=== PATIENT | male | born 1985 ===

== ENCOUNTER 2022-10-08 14:11 | Outpatient (REF) | payer OTHER, SELFPAY ==
--- NOTE | ~2022-10-08 | XR_ITS ---
EXAMINATION: XR CHEST CLINICAL INFORMATION: Shortness of breath COMPARISON: None available. TECHNIQUE: 2 views of the chest were obtained. FINDINGS: No significant abnormality is noted involving the heart, lungs, mediastinum, bony thorax or soft tissues. XR/XR chest 2V IMPRESSION: No acute disease.
--- NOTE | 2022-10-08 14:25 | ECG_ITS ---
Test Reason : CHEST PAIN Blood Pressure : / mmHG Vent. Rate : 091 BPM Atrial Rate : 091 BPM P-R Int : 148 ms QRS Dur : 098 ms QT Int : 356 ms P-R-T Axes : 048 -01 037 degrees QTc Int : 437 ms Normal sinus rhythm Normal ECG No previous ECGs available Referred By: Nicole Moya Electronically Signed By:PRINCE LANZA MD
== END 2022-10-08 14:12 | disposition home or self-care (01) ==
LOC: HO.LAB 14:11
PROVIDERS: PCP Nurse Practitioner Family; Visit Provider Nurse Practitioner Family
DX: R07.9 Chest pain, unspecified (principal); R06.02 Shortness of breath
CPT/HCPCS: 71046; 93005

== ENCOUNTER 2022-10-09 08:05 | Outpatient (REF) | payer OTHER, SELFPAY ==
[2022-10-09 08:21] LABS: MANUAL DIFF FLAG NO
[2022-10-09 08:34] LABS: Basophils Absolute Auto 0.1 X10*3/uL (0.0-0.2); Basophils Percent Auto 0.9 % (0-2); Eosinophils Absolute Auto 0.4 X10*3/uL (0.0-0.4); Eosinophils Percent Auto 6.4 % (0-4); Hematocrit 41.1 % (42.0-52.0); Hemoglobin 13.3 g/dl (14.0-18.0); Imm Gran Abs Auto 0.02 X10*3/uL (0.00-0.03); Imm Gran Pct Auto 0.3 % (0.0-0.4); Lymphocytes Percent Auto 31.6 % (20-40); Mean Corpuscular HGB Conc 32.4 g/dl (31.0-36.0); Mean Corpuscular Hemoglobin 28.9 pg (27.0-33.0); Mean Corpuscular Volume 89.3 fL (80.0-98.0); Mean Platelet Volume 9.2 fL (9.4-12.4); Monocytes Absolute Auto 0.7 X10*3/uL (0.1-1.2); Monocytes Percent Auto 10.6 % (2-11); Neutrophils Absolute Auto 3.2 x10*3/uL (2.0-8.3); Neutrophils Percent Auto 50.2 % (45-73); Platelet Count 280 X10*3/uL (160-400); Red Cell Distribution Width 13.1 % (11.0-16.0); White Blood Count 6.4 X10*3/uL (4.8-10.8)
[2022-10-09 09:20] LABS: Erythrocyte Sedimentation Rate 9 MM/HR (0-15)
[2022-10-09 09:21] LABS: Alanine Aminotransferase 28 U/L (0-40); Albumin Level 4.4 g/dL (3.5-5.0); Alkaline Phosphatase 55 U/L (39-117); Anion Gap 11 (12-20); Aspartate Amino Transferase 24 U/L (5-37); Bilirubin Total 0.8 mg/dL (0.0-1.0); Blood Urea Nitrogen 11 mg/dL (9-16); C Reactive Protein 0.17 mg/dL (< or = 0.50); Calcium 9.6 mg/dL (8.4-10.2); Carbon Dioxide 28 mmol/L (22-29); Chloride 105 mmol/L (96-108); Cholesterol 212 mg/dL; Estimated Glomerular Filt Rate > 60; Glucose Random 98 mg/dL (60-115); HDL Cholesterol 34 mg/dL; LDL Cholesterol Calculated 100 mg/dl; Potassium 5.3 mmol/L (3.3-5.1); Sodium 139 mmol/L (135-145); Total Protein 7.3 g/dL (6.5-8.0); Triglycerides 394 mg/dL
[2022-10-09 09:40] LABS: Rheumatoid Factor < 13.0 IU/mL (<15.0)
[2022-10-09 10:45] LABS: Free T4 (Free Thyroxine) 0.92 ng/dL (0.71-1.85)
[2022-10-16 13:19] LABS: Anti Nuclear Antibody Screen NEGATIVE (NEGATIVE)
== END 2022-10-09 08:06 | disposition home or self-care (01) ==
LOC: HO.LAB 08:05
PROVIDERS: Visit Provider Nurse Practitioner Family
DX: Z13.220 Encounter for screening for lipoid disorders (principal); Z13.29 Encounter for screening for other suspected endocrine disorder; Z13.0 Encounter for screening for diseases of the blood and blood-forming organs and certain disorders involving the immune mechanism; M25.50 Pain in unspecified joint; N02.8 Recurrent and persistent hematuria with other morphologic changes
CPT/HCPCS: 36415; 80053; 80061; 84439; 84443; 85025; 85652; 86038; 86140; 86431

== ENCOUNTER 2022-10-15 09:13 | Outpatient (REF) | payer OTHER, SELFPAY ==
[2022-10-15 09:24] LABS: MANUAL DIFF FLAG NO
[2022-10-15 10:04] LABS: Basophils Absolute Auto 0.1 X10*3/uL (0.0-0.2); Basophils Percent Auto 0.9 % (0-2); Eosinophils Absolute Auto 0.4 X10*3/uL (0.0-0.4); Eosinophils Percent Auto 7.5 % (0-4); Hemoglobin 13.8 g/dl (14.0-18.0); Imm Gran Abs Auto 0.02 X10*3/uL (0.00-0.03); Imm Gran Pct Auto 0.4 % (0.0-0.4); Lymphocytes Absolute Auto 1.9 X10*3/uL (1.2-4.9); Lymphocytes Percent Auto 32.6 % (20-40); Mean Corpuscular HGB Conc 32.9 g/dl (31.0-36.0); Mean Corpuscular Hemoglobin 29.7 pg (27.0-33.0); Mean Corpuscular Volume 90.5 fL (80.0-98.0); Mean Platelet Volume 9.8 fL (9.4-12.4); Monocytes Absolute Auto 0.7 X10*3/uL (0.1-1.2); Monocytes Percent Auto 11.7 % (2-11); Neutrophils Absolute Auto 2.7 x10*3/uL (2.0-8.3); Neutrophils Percent Auto 46.9 % (45-73); Platelet Count 299 X10*3/uL (160-400); Red Blood Count 4.64 X10*6/uL (4.60-5.80); White Blood Count 5.7 X10*3/uL (4.8-10.8)
[2022-10-15 10:25] LABS: Alanine Aminotransferase 22 U/L (0-40); Albumin Level 4.7 g/dL (3.5-5.0); Alkaline Phosphatase 60 U/L (39-117); Anion Gap 13 (12-20); Aspartate Amino Transferase 22 U/L (5-37); Bilirubin Total 0.9 mg/dL (0.0-1.0); Blood Urea Nitrogen 11 mg/dL (9-16); Carbon Dioxide 29 mmol/L (22-29); Chloride 104 mmol/L (96-108); Estimated Glomerular Filt Rate > 60; Glucose Random 91 mg/dL (60-115); Potassium 4.5 mmol/L (3.3-5.1); Sodium 141 mmol/L (135-145); Total Protein 7.8 g/dL (6.5-8.0)
== END 2022-10-15 09:14 | disposition home or self-care (01) ==
LOC: HO.LAB 09:13
PROVIDERS: PCP Nurse Practitioner Family; Visit Provider Nurse Practitioner Family
DX: D64.9 Anemia, unspecified (principal); E87.5 Hyperkalemia
CPT/HCPCS: 36415; 80053; 85025

== ENCOUNTER 2022-11-13 09:08 | Outpatient (REF) | payer OTHER, SELFPAY | END 2022-11-13 09:09 | disposition home or self-care (01) | LOC: HO.RESP 09:08 | PROVIDERS: PCP Nurse Practitioner Family; Visit Provider Nurse Practitioner Family | DX: R06.02 Shortness of breath (principal) | CPT/HCPCS: 94060; 94727; 94729 ==

== ENCOUNTER 2022-12-16 08:39 | Outpatient (REF) | payer OTHER, SELFPAY ==
[2022-12-16 10:56] LABS: TSH reflex Free T4 4.15 uIU/mL (0.32-4.0)
[2022-12-16 12:11] LABS: Free T4 (Free Thyroxine) 0.79 ng/dL (0.71-1.85)
== END 2022-12-16 08:40 | disposition home or self-care (01) ==
LOC: HO.LAB 08:39
PROVIDERS: PCP Nurse Practitioner Family; Visit Provider Nurse Practitioner Family
DX: R79.89 Other specified abnormal findings of blood chemistry (principal)
CPT/HCPCS: 36415; 84439; 84443

== ENCOUNTER 2023-01-09 13:54 | Outpatient (AMB) | payer OTHER, SELFPAY ==
[2023-01-09 13:58] VITALS: BP 142/98; PULSE 105; O2SAT 99; BMI 26.6
--- NOTE | 2023-01-09 13:58 | A.OFFPC_ITS ---
Vital Signs 01/09/23 13:58 Height 5 ft 10.5 in Weight 188 lb 2 oz BMI 26.6 BP 142/98 H Blood Pressure Location Lt brachial Position Sitting Pulse 105 H Pulse Source Pulse Oximeter Pulse Oximetry (%) 99 Oxygen Delivery Method Room Air Intake Visit Reasons: Follow up Intake Note: Pt is here for F/U. 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 Pastmedical history significant for seasonal allergiesand allergies to mold and mildew. Patient requesting referral to surveillance systems engineer for allergy testing, referral entered. Patient reports his ongoing chest pressure has resolved. And he overall is feeling much better, patient reports has been going to the gym and exercising. Patient also reports he is taking a multivitamin as well as iron. Requesting that his labs be repeated, repeat labs entered. Patient also requesting referral to a dietitian as he is a vegetarian and wants to make sure he is eating a well-balanced diet and receiving enough nutrients. Referral entered. Blood pressure elevated office today 142/98, recheck by this MAT MAKING MACHINE TENDER 130/88. Patient states he did have coffee today which he does not normally drink. [facility] Medical History Vegetarian diet Family History Mother Rheumatoid arthritis Father No problems noted. Brother No problems noted. Maternal Grandmother Breast cancer Paternal Grandfather Lung cancer Social History Housing: Apartment Alcohol intake: current Alcohol intake frequency: holidays/special occasions only Patient Tobacco Use Status: Former Tobacco user e-Cigarette/Vaping Use: Former Use Second Hand Smoke Exposure: No service: No Current occupational status: employed Current occupational exposures/hazards: No Cognitive needs: No Hearing needs: No Vision needs: Yes (glasses/ contacts) Questionnaire Thrive Questionnaire Date Thrive assessed: 10/08/22 MILEY-7 AMB Questionnaire MILEY-7 Date MILEY - 7 assessed: 10/08/22 Source: Developed by Drs. Shyam Rivero, Richelle Mccurdy, Jatin Hoffman and colleagues, with an educational vinnie from [employer]. Review of Systems Const Denies chills, Denies fatigue, Denies fever(s) and Denies poor appetite Eyes Denies no additional complaints ENT Reports Normal hearing present Card Denies chest pain, Denies syncope, Denies rapid heart rate and Denies dyspnea Resp Denies cough and Denies dyspnea GI Denies change in stool character, Denies constipation, Denies diarrhea, Denies nausea and Denies vomiting Denies dysuria, Denies urinary frequency and Denies urinary urgency Neuro Reports Normal hearing present, Denies confusion and Denies syncope Psych Denies confusion Endo Denies fatigue Physical exam (Primary Care) Vital Signs: Last Vital Signs Pulse 105 H 01/09/23 13:58 BP 142/98 H 01/09/23 13:58 Pulse Ox 99 01/09/23 13:58 Oxygen Delivery Method Room Air 01/09/23 13:58 BMI result Body Mass Index 26.6 Tobacco/Smoking Status: Tobacco use Status Tobacco use date assessed 10/08/22 01/09/23 14:00 Patient Tobacco Use Status Former Tobacco user 01/09/23 14:00 e-Cigarette/Vaping Use Former Use 01/09/23 14:00 Thrive Assessment: Date of Thrive Assessment Date Thrive assessed 10/08/22 01/09/23 14:00 Const General: No confusion Orientation/consciousness: No confusion HENMT Head: Yes normocephalic and Yes atraumatic Eyes Conjunctivae: conjunctivae normal Chest Chest palpation & inspection: normal inspection of the chest Resp Effort & Inspection: normal respiratory effort Auscultation: clear to auscultation bilaterally, no crackles, no rhonchi and no wheezes Cardio Rate: regular rate Rhythm: regular rhythm Heart sounds: S1 normal heart sound present and S2 normal heart sound present GI Inspection: Yes normal to inspection General: Yes no CVA tenderness Back/Spine/Pelvis Back: no CVA tenderness Neuro General: No confusion Cranial nerves: Yes Normal hearing present Extrem General: No edema Assessment and Plan Assessment & Plan (1) Vegetarian diet: Code(s): Z78.9 - Other specified health status Plan: Patient requesting referral to dietitian, referral entered. (2) Environmental allergies: Code(s): Z91.09 - Other allergy status, other than to drugs and biological substances Plan: Referral entered to surveillance systems engineer as requested by patient for allergy testing. (3) Elevated blood pressure reading in office with white coat syndrome, without diagnosis of hypertension: Code(s): R03.0 - Elevated blood-pressure reading, without diagnosis of hypertension Plan: Possibly related to caffeine consumption, which patient reports he does not usually drink. Patient advised follow low-salt diet and exercise. Plan Keep scheduled physical exam in October or follow-up sooner if needed. Orders: Orders Comprehensive Gillespie. Panel Fast Today E78.00 - Pure hypercholesterolemia, unspecified Lipid Panel Today Z13.220 - Encounter for screening for lipoid disorders Complete Blood Count Auto Diff Today Z13.0 - Encounter for screening for diseases of the blood and blood-forming organs and certain disorders involving the immune mechanism Referrals Securities Teller Nutrition Referral D64.9 - Anemia, unspecified, Z78.9 - Other specified health status Allergy & Immunology Referral Z91.09 - Other allergy status, other than to drugs and biological substances Coding Level of Care Code Est Pt Level 3 (90251) Diagnoses Vegetarian diet Z78.9 Environmental allergies Z91.09 Elevated blood pressure reading in office with white coat syndrome, without diagnosis of hypertension R03.0
== END 2023-01-09 14:24 | disposition home or self-care (01) ==
PROVIDERS: PCP Nurse Practitioner Family; Visit Provider Nurse Practitioner Family
DX: Z78.9 Other specified health status (principal); Z91.09 Other allergy status, other than to drugs and biological substances; R03.0 Elevated blood-pressure reading, without diagnosis of hypertension
CPT/HCPCS: 99213

== ENCOUNTER 2023-01-10 09:34 | Outpatient (REF) | payer OTHER, SELFPAY ==
[2023-01-10 09:47] LABS: MANUAL DIFF FLAG NO
[2023-01-10 10:28] LABS: Basophils Absolute Auto 0.1 X10*3/uL (0.0-0.2); Basophils Percent Auto 0.9 % (0-2); Eosinophils Absolute Auto 0.4 X10*3/uL (0.0-0.4); Eosinophils Percent Auto 6.1 % (0-4); Hematocrit 41.3 % (42.0-52.0); Hemoglobin 13.6 g/dl (14.0-18.0); Imm Gran Abs Auto 0.04 X10*3/uL (0.00-0.03); Imm Gran Pct Auto 0.6 % (0.0-0.4); Lymphocytes Absolute Auto 2.4 X10*3/uL (1.2-4.9); Lymphocytes Percent Auto 35.3 % (20-40); Mean Corpuscular HGB Conc 32.9 g/dl (31.0-36.0); Mean Corpuscular Hemoglobin 29.4 pg (27.0-33.0); Mean Corpuscular Volume 89.2 fL (80.0-98.0); Mean Platelet Volume 9.4 fL (9.4-12.4); Monocytes Absolute Auto 0.8 X10*3/uL (0.1-1.2); Monocytes Percent Auto 11.1 % (2-11); Neutrophils Absolute Auto 3.1 x10*3/uL (2.0-8.3); Platelet Count 290 X10*3/uL (160-400); Red Blood Count 4.63 X10*6/uL (4.60-5.80); Red Cell Distribution Width 13.1 % (11.0-16.0); White Blood Count 6.7 X10*3/uL (4.8-10.8)
[2023-01-10 11:32] LABS: Alanine Aminotransferase 20 U/L (0-40); Albumin Level 4.5 g/dL (3.5-5.0); Alkaline Phosphatase 58 U/L (39-117); Anion Gap 14 (12-20); Aspartate Amino Transferase 18 U/L (5-37); Bilirubin Total 0.7 mg/dL (0.0-1.0); Blood Urea Nitrogen 11 mg/dL (9-16); Calcium 9.7 mg/dL (8.4-10.2); Carbon Dioxide 23 mmol/L (22-29); Chloride 106 mmol/L (96-108); Cholesterol 221 mg/dL (<200); Estimated Glomerular Filt Rate > 60; Glucose Fasting 87 mg/dL (60-99); HDL Cholesterol 34 mg/dL (>40); LDL Cholesterol Calculated 128 mg/dL (<100); Sodium 139 mmol/L (135-145); Total Protein 7.5 g/dL (6.5-8.0); Triglycerides 296 mg/dL (<150)
== END 2023-01-10 09:35 | disposition home or self-care (01) ==
LOC: HO.LAB 09:34
PROVIDERS: PCP Nurse Practitioner Family; Visit Provider Nurse Practitioner Family
DX: E78.00 Pure hypercholesterolemia, unspecified (principal); Z13.220 Encounter for screening for lipoid disorders; Z13.0 Encounter for screening for diseases of the blood and blood-forming organs and certain disorders involving the immune mechanism
CPT/HCPCS: 36415; 80053; 80061; 85025

== ENCOUNTER 2023-02-07 14:48 | Outpatient (REF) | payer OTHER, SELFPAY ==
[2023-02-07 15:37] LABS: Appearance Urine Clear; Color Urine Yellow; Glucose Urine UA Negative (Negative); Leukocyte Esterase Urine Negative (Negative); Nitrite Urine Negative (Negative); Specific Gravity - Urine <= 1.005 (1.005-1.025); UMIC TRIGGER UA YES; Urine Blood Trace (Negative); Urine Ketones Negative (Negative); Urine Protein Negative (Neg-Trace)
[2023-02-07 15:48] LABS: Bacteria Urine None Seen (None Seen); Hyaline Casts Urine 0-2 /LPF (0-2); Squamous Epithelial Cell Urine 0-2 /HPF (0-2); WBC Urine 0-5 /HPF (0-5)
[2023-02-07 15:50] LABS: Total Protein Urine Random < 7 mg/dL (<12)
[2023-02-10 18:08] LABS: Anti Glomerular Basement Memb <1.0 AI
[2023-02-10 22:48] LABS: Complement C3 134 mg/dL (82-185)
[2023-02-11 14:38] LABS: IgA 200 mg/dL (47-310); IgG 1438 mg/dL (600-1640); IgM 67 mg/dL (50-300)
[2023-02-12 12:39] LABS: Neutrophil Cyto Ab Screen NEGATIVE (NEGATIVE)
== END 2023-02-07 14:49 | disposition home or self-care (01) ==
LOC: HO.LAB 14:48
PROVIDERS: Visit Provider Internal Medicine Hypertension Specialist
DX: N02.8 Recurrent and persistent hematuria with other morphologic changes (principal)
CPT/HCPCS: 36415; 81001; 82570; 82784; 83520; 84156; 86036; 86160; 86334

== ENCOUNTER 2023-02-25 12:50 | Outpatient (AMB) | payer OTHER, SELFPAY ==
[2023-02-25 13:18] VITALS: BMI 26.7
--- NOTE | 2023-02-25 13:18 | A.OFFVIS_ITS ---
Intake VS Expanded 02/25/23 13:18 03/04/23 13:19 Height 5 ft 10.5 in 5 ft 10 in Weight 188 lb 14.978 oz 189 lb BMI 26.7 27.1 Intake Visit Reasons: Anemia, unspecified/LVM Allergies Seasonal Allergies Allergy (Severe, Verified 01/09/23 14:08) Itchy Eyes HPI Nutrition Presentation Details Pt presents for MNT for anemia Pt reports following a vegetarian diet since 2004 and in the past year he is working on including nutritious vegetarian foods. Pt has questions regarding meal planning and nutrient deficiencies. Pt wants to work on diet modifications following a vegetarian diet and balancing meals. ETOH/SMoking; denies pastries andhte like ++ fruits: 0-1/d dairy: 8-12 oz/d starches > 20 servings vegetables: 3 serving/d protein foods: seeds/cheese , now including legumes and yogurts FRF-Akhltol-Mq.Jeor Equation Height 5 ft 10 in Weight 189 lb Resting Metabolic Rate 1790.64 Calculated Activity Level Mild Activity Calories Needed to Maintain Weight 2462.13 Diagnosis Nutrition problem #1 food nutri know defi As related to (etiology) #1 diagnosis As evidenced by (sign/symptom) #1 knowledge deficit of diet Monitoring/Goals Nutrition problem monitoring level of knowledge/skill Outcome comment Vegetarian protein sources of foods/omega 3 sources of foods Learning/Education Readiness to learn good Stages of change action Educational materials provided Yes (vegetarian meal planning) Most Recent Diabetes Results: Cholesterol 221 mg/dL (<200) H 01/10/23 HDL Cholesterol 34 mg/dL (>40) L 01/10/23 Triglycerides 296 mg/dL (<150) H 01/10/23 Creatinine 0.95 mg/dL (0.5-1.4) 01/10/23 Blood Urea Nitrogen 11 mg/dL (9-16) 01/10/23 Sodium 139 mmol/L (135-145) 01/10/23 Potassium 4.0 mmol/L (3.3-5.1) 01/10/23 Chloride 106 mmol/L (96-108) 01/10/23 Carbon Dioxide 23 mmol/L (22-29) 01/10/23 Calcium 9.7 mg/dL (8.4-10.2) 01/10/23 AST 18 U/L (5-37) 01/10/23 ALT 20 U/L (0-40) 01/10/23 Total Protein 7.5 g/dL (6.5-8.0) 01/10/23 Albumin 4.5 g/dL (3.5-5.0) 01/10/23 [facility] Medical History Vegetarian diet Family History Mother Rheumatoid arthritis Father No problems noted. Brother No problems noted. Maternal Grandmother Breast cancer Paternal Grandfather Lung cancer Social History Housing: Apartment Alcohol intake: current Alcohol intake frequency: holidays/special occasions only Patient Tobacco Use Status: Former Tobacco user e-Cigarette/Vaping Use: Former Use Second Hand Smoke Exposure: No service: No Current occupational status: employed Current occupational exposures/hazards: No Cognitive needs: No Hearing needs: No Vision needs: Yes (glasses/ contacts) Assessment & Plan Assessment & Plan (1) Anemia: Code(s): D64.9 - Anemia, unspecified Plan: wt: 86 kg Est kcal needs as per MSJ: 2500 (40% carb, 30% protein/fat) Est fluid needs as per 25-30 ml/d: 2600 Est prot per day as per 1 g/kg bw: 86 Recommend fiber intake : 8-10 g per day and gradually increase to 25-28 g per day for women and 35-38 g for men or as tolerated Recommend sodium intake per day : less than 2000 mg Educated patient on: ( R = reviewed V = verbalizes understanding N/R = needs review N/A = not applicable * Food sources of carbohydrate, adequate serving sizes and its role in various health conditions: R ,V * Differences between complex carbohydrates a simple carbohydrates, role of fiber in diet: R , V * Vegetarian protein sources of foods and vegetarian food combinations: R * Differences between types of fats and role in diet (mono on saturated fat fatty acids, saturated fatty acids, trans fats): NR * Food sources of sodium in salt and healthy modifications for heart health in kidney health: NR * Vitamins and minerals: R * Healthy plate method concept: R * Physical activity: Benefits a precaution: R V * Abstinence from alcohol: R Patient Instructions: Include vegetarian iron rich source of foods ( legumes/nuts/seeds/ edamame/tofu/eggs) Include vegetarian protein source of foods in each meal following healthy plate method see meal plan ideas Coding Level of Care Code Nutr Indiv Intake (37911) Diagnoses Anemia D64.9 Time Spent (min) 30
[2023-03-04 13:19] VITALS: BMI 27.1
== END 2023-02-25 13:54 | disposition home or self-care (01) ==
PROVIDERS: PCP Nurse Practitioner Family; Visit Provider Dietitian, Registered
DX: D64.9 Anemia, unspecified (principal)

== ENCOUNTER → 2023-02-25 12:50 | Outpatient (BNVA) | payer OTHER, SELFPAY | PROVIDERS: PCP Nurse Practitioner Family; Visit Provider Dietitian, Registered | DX: Z71.3 Dietary counseling and surveillance (principal); D64.9 Anemia, unspecified | CPT/HCPCS: 97802 ==

== ENCOUNTER 2023-03-25 07:06 | Outpatient (REF) | payer OTHER, SELFPAY ==
[2023-03-25 08:25] LABS: TSH reflex Free T4 1.84 uIU/mL (0.32-4.0)
== END 2023-03-25 07:07 | disposition home or self-care (01) ==
LOC: HO.LAB 07:06
PROVIDERS: PCP Nurse Practitioner Family; Visit Provider Nurse Practitioner Family
DX: R79.89 Other specified abnormal findings of blood chemistry (principal)
CPT/HCPCS: 36415; 84443

== ENCOUNTER 2023-05-28 12:51 | Outpatient (AMB) | payer OTHER, SELFPAY ==
[2023-05-28 13:15] VITALS: BMI 27.2
--- NOTE | 2023-05-28 13:15 | A.OFFVIS_ITS ---
Intake VS Expanded 05/28/23 13:15 Height 5 ft 10.5 in Weight 192 lb 3.889 oz BMI 27.2 Intake Visit Reasons: dm/CONFIRMED Allergies Seasonal Allergies Allergy (Severe, Verified 01/09/23 14:08) Itchy Eyes HPI Nutrition Presentation Details Pt presents for MNT follow up anemia. Pt reports working on choosing vegetarian meals, and incorporating vegetables/plant protein foods and reducing on empty calorie foods. Dairy alternative: soy, oat pea milk , 4+ serving/d fruits: 4-5 serving/d non starchy vegetables : 5+ serving/d nuts/seeds: daily 3 + servings pastries: 1-2/d fluids: water, tea, fruit juice diluted with water Physical activity: walks daily Most Recent Diabetes Results: Cholesterol 221 mg/dL (<200) H 01/10/23 HDL Cholesterol 34 mg/dL (>40) L 01/10/23 Triglycerides 296 mg/dL (<150) H 01/10/23 Creatinine 0.95 mg/dL (0.5-1.4) 01/10/23 Blood Urea Nitrogen 11 mg/dL (9-16) 01/10/23 Sodium 139 mmol/L (135-145) 01/10/23 Potassium 4.0 mmol/L (3.3-5.1) 01/10/23 Chloride 106 mmol/L (96-108) 01/10/23 Carbon Dioxide 23 mmol/L (22-29) 01/10/23 Calcium 9.7 mg/dL (8.4-10.2) 01/10/23 AST 18 U/L (5-37) 01/10/23 ALT 20 U/L (0-40) 01/10/23 Total Protein 7.5 g/dL (6.5-8.0) 01/10/23 Albumin 4.5 g/dL (3.5-5.0) 01/10/23 COUNTS INCLUDE 234 BEDS AT [facility] Medical History Vegetarian diet Family History Mother Rheumatoid arthritis Father No problems noted. Brother No problems noted. Maternal Grandmother Breast cancer Paternal Grandfather Lung cancer Social History Housing: Apartment Alcohol intake: current Alcohol intake frequency: holidays/special occasions only Patient Tobacco Use Status: Former Tobacco user e-Cigarette/Vaping Use: Former Use Second Hand Smoke Exposure: No service: No Current occupational status: employed Current occupational exposures/hazards: No Cognitive needs: No Hearing needs: No Vision needs: Yes (glasses/ contacts) Assessment & Plan Assessment & Plan (1) Anemia: Code(s): D64.9 - Anemia, unspecified Plan: wt: 86 kg Est kcal needs as per MSJ: 2500 (40% carb, 30% protein/fat) Est fluid needs as per 25-30 ml/d: 2600 Est prot per day as per 1 g/kg bw: 86 Recommend fiber intake : 8-10 g per day and gradually increase to 25-28 g per day for women and 35-38 g for men or as tolerated Recommend sodium intake per day : less than 2000 mg Educated patient on: ( R = reviewed V = verbalizes understanding N/R = needs review N/A = not applicable * Food sources of carbohydrate, adequate serving sizes and its role in various health conditions: R ,V * Differences between complex carbohydrates a simple carbohydrates, role of fiber in diet: R , V * Vegetarian protein sources of foods and vegetarian food combinations: R * Differences between types of fats and role in diet (mono on saturated fat fatty acids, saturated fatty acids, trans fats): R * Food sources of sodium in salt and healthy modifications for heart health in kidney health: R * Vitamins and minerals: R * Healthy plate method concept: R * Physical activity: Benefits a precaution: R V * Abstinence from alcohol: R Patient Instructions: Continue working on following healthyp late method, incorporating plant protein foods Keep hydrated Choose foods fortified with Calcium, vit D Coding Level of Care Code Nutr Indiv Subseq (37793) Diagnoses Anemia D64.9 Time Spent (min) 20
== END 2023-05-28 13:45 | disposition home or self-care (01) ==
PROVIDERS: PCP Nurse Practitioner Family; Visit Provider Dietitian, Registered
DX: D64.9 Anemia, unspecified (principal)

== ENCOUNTER → 2023-05-28 12:51 | Outpatient (BNVA) | payer OTHER, SELFPAY | PROVIDERS: PCP Nurse Practitioner Family; Visit Provider Dietitian, Registered | DX: D64.9 Anemia, unspecified (principal); Z71.3 Dietary counseling and surveillance | CPT/HCPCS: 97803 ==

== ENCOUNTER 2023-07-19 09:21 | Outpatient (REF) | payer OTHER, SELFPAY ==
[2023-07-19 09:45] LABS: MANUAL DIFF FLAG NO
[2023-07-19 10:18] LABS: Basophils Absolute Auto 0.1 X10*3/uL (0.0-0.2); Basophils Percent Auto 1.1 % (0-2); Eosinophils Absolute Auto 0.5 X10*3/uL (0.0-0.4); Eosinophils Percent Auto 10.1 % (0-4); Hematocrit 41.2 % (42.0-52.0); Hemoglobin 13.7 g/dl (14.0-18.0); Imm Gran Abs Auto 0.02 X10*3/uL (0.00-0.03); Imm Gran Pct Auto 0.4 % (0.0-0.4); Lymphocytes Absolute Auto 1.6 X10*3/uL (1.2-4.9); Lymphocytes Percent Auto 33.7 % (20-40); Mean Corpuscular HGB Conc 33.3 g/dl (31.0-36.0); Mean Corpuscular Hemoglobin 29.8 pg (27.0-33.0); Mean Corpuscular Volume 89.8 fL (80.0-98.0); Mean Platelet Volume 9.6 fL (9.4-12.4); Monocytes Absolute Auto 0.5 X10*3/uL (0.1-1.2); Monocytes Percent Auto 9.9 % (2-11); Neutrophils Absolute Auto 2.1 x10*3/uL (2.0-8.3); Neutrophils Percent Auto 44.8 % (45-73); Platelet Count 267 X10*3/uL (160-400); Red Blood Count 4.59 X10*6/uL (4.60-5.80); Red Cell Distribution Width 13.5 % (11.0-16.0); White Blood Count 4.7 X10*3/uL (4.8-10.8)
[2023-07-19 11:37] LABS: Alanine Aminotransferase 13 U/L (0-40); Albumin Level 4.6 g/dL (3.5-5.0); Alkaline Phosphatase 49 U/L (39-117); Anion Gap 12 (12-20); Aspartate Amino Transferase 16 U/L (5-37); Bilirubin Total 0.8 mg/dL (0.0-1.0); Blood Urea Nitrogen 15 mg/dL (9-16); Calcium 9.5 mg/dL (8.4-10.2); Carbon Dioxide 27 mmol/L (22-29); Chloride 107 mmol/L (96-108); Cholesterol 242 mg/dL (<200); Estimated Glomerular Filt Rate > 60; Glucose Fasting 99 mg/dL (60-99); HDL Cholesterol 50 mg/dL (>40); LDL Cholesterol Calculated 166 mg/dL (<100); Potassium 4.7 mmol/L (3.3-5.1); Sodium 141 mmol/L (135-145); Total Protein 7.7 g/dL (6.5-8.0); Triglycerides 131 mg/dL (<150)
== END 2023-07-19 09:22 | disposition home or self-care (01) ==
LOC: HO.LAB 09:21
PROVIDERS: Visit Provider Nurse Practitioner Family
DX: Z13.0 Encounter for screening for diseases of the blood and blood-forming organs and certain disorders involving the immune mechanism (principal); Z13.29 Encounter for screening for other suspected endocrine disorder; Z13.220 Encounter for screening for lipoid disorders; N02.8 Recurrent and persistent hematuria with other morphologic changes
CPT/HCPCS: 36415; 80053; 80061; 84443; 85025

== ENCOUNTER 2023-08-12 15:36 | Outpatient (AMB) | payer OTHER, SELFPAY ==
--- NOTE | 2023-08-12 15:53 | MHC.PC.OV ---
Vital Signs 08/12/23 15:55 Height 5 ft 10.5 in Weight 189 lb BMI 26.7 BP 100/68 Blood Pressure Location Lt brachial Position Sitting Pulse 74 Pulse Source Pulse Oximeter Pulse Oximetry (%) 98 Oxygen Delivery Method Room Air Intake Visit Reasons: Transfer Of Care Dr. Blanca/Labs Intake Note: Patient is here today for a transfer of care from . 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 Heating Repair Technician: Not Required per policy Accompanied by: Self / Same As Patient Allergies Seasonal Allergies Allergy (Severe, Verified 08/28/23 13:29) Itchy Eyes Medication List - Last Reconciled 08/12/23 by Sourav Jean Baptiste MD cetirizine (Zyrtec) 10 mg PO DAILY PRN loratadine (Claritin) 10 mg PO DAILY Tobacco use date assessed: 08/12/23 Dental Screening Dental Screen Date: 08/12/23 Did you have a dental visit in the last 12 months?: Yes Did you have a dental problem in the last 6 months where you did not have access to dental care?: No Was dental information given to patient?: Patient has dentist HPI Transfer Of Care Dr. Blanca/Labs HPI Details Patient comes in today for his follow up visit - is transferring over from Nicole Segura, who is no longer with the practice Patient states that he feels okay He denies any headaches or dizziness Denies any chest pains, no SOB No nausea/vomiting, no abdominal pain No change in bowel habits noted He had his follow up labs done last month - to discuss his results States that he used to see Dr. Love at his previous renal practice in [place] for his kidney issues and would like to continue following up with him but since he switched his practice over here [place] [facility], will need a new referral for insurance purposes [facility] Medical History Overweight (BMI 25.0-29.9) Pure hypercholesterolemia Vegetarian diet Surgical History No pertinent past surgical history Family History Mother Rheumatoid arthritis Father No problems noted. Brother No problems noted. Maternal Grandmother Breast cancer Paternal Grandfather Lung cancer Social History Housing: Apartment Alcohol intake: current Alcohol intake frequency: holidays/special occasions only Patient Tobacco Use Status: Former Tobacco user e-Cigarette/Vaping Use: Former Use Second Hand Smoke Exposure: No service: No Current occupational status: employed Current occupational exposures/hazards: No Cognitive needs: No Hearing needs: No Vision needs: Yes (glasses/ contacts) Questionnaire PHQ-9 Over the last 2 weeks, how often have you been bothered by any of the following problems? 1. Little interest or pleasure in doing things: not at all 2. Feeling down, depressed, or hopeless: not at all 3. Trouble falling or staying asleep, or sleeping too much: not at all 4. Feeling tired or having little energy: not at all 5. Poor appetite or overeating: not at all 6. Feeling bad about yourself - or that you are a failure or have let yourself or your family down: not at all 7. Trouble concentrating on things, such as reading the newspaper or watching television: not at all 8. Moving or speaking so slowly that other people could have noticed. Or the opposite - being so fidgety or restless that you have been moving around a lot more than usual: not at all 9. Thoughts that you would be better off or of hurting yourself in some way: not at all Total score: 0 Depression Screening Interpretation: Negative Depression Screening Done: Yes 11528 - PHQ-9 Billing: Yes Source: Developed by Drs. Shyam Rivero, Richelle Mccurdy, Jatin Hoffman and colleagues, with an educational vinnie from [employer]. Thrive Questionnaire Date Thrive assessed: 08/12/23 I am a: Patient What is your living situation today?: I have a steady place to live Within the past 12 months, did the food you bought not last and you didn't have the money to get more?: Never true Within the past 12 months, did you worry whether your food would run out before you got money to buy more?: Never true Do you have trouble paying for medicines?: No Do you have trouble getting transportation to medical appointments?: No Do you have trouble paying your heating and electricity bill?: No Do you have trouble taking care of your child, family member or friend?: No Do you have trouble with day-to-day activities such as bathing, preparing meals, shopping, managing finances, etc.?: No Are you currently unemployed and looking for a job?: No Are you interested in more education?: No Currently or been in a relationship where the following occur: no concerns reported THRIVE Score: 0 AUDIT C Alcohol Use Questionnaire (AUDIT-C) 1. How often do you have a drink containing alcohol?: Monthly or less 2. How many drinks containing alcohol do you have on a typical day when you are drinking?: 1 or 2 3. How often do you have six or more drinks on one occasion?: Never Total Score: 1 Score Reviewed/Action Taken: Yes MILEY-7 AMB Questionnaire MILEY-7 Date MILEY - 7 assessed: 08/12/23 Feeling nervous, anxious, or on edge: 0 = Not at all Not being able to stop or control worryin = Not at all Worrying too much about different things: 0 = Not at all Trouble relaxin = Not at all Being so restless that it is hard to sit still: 0 = Not at all Becoming easily annoyed or irritable: 0 = Not at all Feeling afraid as if something awful might happen: 0 = Not at all Total MILEY-7 score (0-4 normal; 5-9 mild; 10-14 moderate; 15-21 severe): 0 Source: Developed by Drs. Shyam Rivero, Richelle Mccurdy, Jatin Hoffman and colleagues, with an educational vinnie from [employer]. Review of Systems Const Denies chills, Denies fatigue, Denies fever(s) and Denies headache(s) ENT Denies dysphagia, Denies dizziness, Denies otalgia, Denies headache(s), Denies neck pain, Denies odynophagia and Denies sore throat Card Denies chest pain, Denies palpitations and Denies dyspnea Resp Denies cough and Denies dyspnea GI Denies abdominal pain, Denies constipation, Denies dysphagia, Denies heartburn, Denies diarrhea, Denies nausea, Denies odynophagia and Denies vomiting Denies dysuria, Denies nocturia and Denies urinary frequency Musc Denies back pain and Denies neck pain Skin/Breast Denies rash Neuro Denies dizziness and Denies headache(s) Endo Denies fatigue and Denies palpitations Physical exam (Primary Care) Vital Signs: Last Vital Signs Pulse 74 08/12/23 15:55 BP 100/68 08/12/23 15:55 Pulse Ox 98 08/12/23 15:55 Oxygen Delivery Method Room Air 08/12/23 15:55 BMI result Body Mass Index 26.7 Tobacco/Smoking Status: Tobacco use Status Tobacco use date assessed 08/12/23 08/12/23 16:01 Patient Tobacco Use Status Former Tobacco user 08/12/23 16:01 e-Cigarette/Vaping Use Former Use 08/12/23 16:01 PHQ-9: PHQ-9 Score PHQ-9: Total score 0 08/12/23 16:31 Depression Screening Interpretation: Negative Thrive Assessment: Date of Thrive Assessment Date Thrive assessed 08/12/23 08/12/23 16:01 Currently or been in a relationship where the following occur: no concerns reported Const General: no acute distress and alert HENMT Ears: TM's normal bilaterally and EAC's normal Throat: Yes posterior oropharynx normal and Yes tonsils normal (no TP congestion) Neck Neck: Yes no lymphadenopathy and Yes supple Thyroid: Thyroid normal Resp Auscultation: clear to auscultation bilaterally, no rales and no wheezes Cardio Rate: regular rate Rhythm: regular rhythm Heart sounds: no murmurs GI Palpation (GI): Soft to palpation and nontender Auscultation: normal bowel sounds General: Yes no CVA tenderness Back/Spine/Pelvis Back: no CVA tenderness Skin Rashes: no rashes Extrem General: Yes no clubbing, cyanosis or edema Results Reviewed Results Reviewed: Laboratory Tests 07/19/23 09:40 WBC 4.7 L Hgb 13.7 L Hct 41.2 L Plt Count 267 Sodium 141 Potassium 4.7 Creatinine 1.03 Estimated GFR > 60 Fasting Glucose 99 Calcium 9.5 AST 16 ALT 13 Triglycerides 131 Cholesterol 242 H LDL Cholesterol, Calc 166 H HDL Cholesterol 50 TSH 1.80 Assessment and Plan Assessment & Plan (1) Pure hypercholesterolemia: Code(s): E78.00 - Pure hypercholesterolemia, unspecified Plan: Results of his labs done last month reviewed and discussed with patient - he is advised that his LDL cholesterol is very high on his recent labs Patient states that he is a vegetarian so he does not really know where his cholesterol is coming from Discussed with patient that this may be hereditary, in which case he will have to be on Rx for his cholesterol at some point, but advised him that one can also have high cholesterol even if he is a vegetarian as we can also absord cholesterol from plant sterols Discussed low cholesterol diet - will have him try to pay more attention to how his food is prepared and cooked for now and we will recheck and reassess his cholesterol at some point later on (2) Eosinophilia: Code(s): D72.10 - Eosinophilia, unspecified Qualifiers: Eosinophilia type: unspecified eosinophilia Qualified Code(s): D72.10 - Eosinophilia, unspecified Plan: Have advised him that his CBC continues to present with persistent eosinophilia, which he's had whenever he had labs done since last year He reports that he has allergies and takes either OTC Loratadine 10 mg or Cetirizine 10 mg QD PRN Will send him for some additional labs for further evaluation Will also refer him to allergy and immunology for further evaluation and management (3) Hematuria: Code(s): R31.9 - Hematuria, unspecified Qualifiers: Hematuria type: benign essential microscopic Qualified Code(s): R31.1 - Benign essential microscopic hematuria Plan: Per request, will refer him to [facility] [place]phrology - patient used to see Dr. Love at his previous renal practice in [place] and would like to continue following up with him (4) Overweight (BMI 25.0-29.9): Code(s): E66.3 - Overweight Plan: Reinforced diet/exercise as tolerated/lose weight Plan Follow up in 3 months Orders: Orders Tryptase 08/12/23 D72.10 - Eosinophilia, unspecified Vitamin B12 and Folate 08/12/23 E53.8 - Deficiency of other specified B group vitamins, D72.10 - Eosinophilia, unspecified Pathologist Review - CBC 08/12/23 D72.10 - Eosinophilia, unspecified, D64.9 - Anemia, unspecified IRON PROFILE 08/12/23 D50.9 - Iron deficiency anemia, unspecified, D72.10 - Eosinophilia, unspecified IgE Antibody (Anti-IgE IgG) 08/13/23 D72.10 - Eosinophilia, unspecified IgE Antibody (Anti-IgE IgG) 08/12/23 D72.10 - Eosinophilia, unspecified UA CC w/rflx Micro + Cult 08/12/23 N02.8 - Recurrent and persistent hematuria with other morphologic changes Referrals Allergy & Immunology Referral Z91.09 - Other allergy status, other than to drugs and biological substances Nephrology Referral N02.8 - Recurrent and persistent hematuria with other morphologic changes Coding Level of Care Code Est Pt Level 4 (04384) Diagnoses Pure hypercholesterolemia E78.00 Eosinophilia, unspecified type D72.10 Eosinophilia type: unspecified eosinophilia 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
[2023-08-12 15:55] VITALS: BP 100/68; PULSE 74; O2SAT 98; BMI 26.7
== END 2023-08-12 16:57 | disposition home or self-care (01) ==
PROVIDERS: PCP Nurse Practitioner Family; Visit Provider Internal Medicine
DX: E78.00 Pure hypercholesterolemia, unspecified (principal); D72.10 Eosinophilia, unspecified; R31.1 Benign essential microscopic hematuria; E66.3 Overweight
CPT/HCPCS: 99214

== ENCOUNTER 2023-08-12 17:02 | Outpatient (REF) | payer OTHER, SELFPAY ==
[2023-08-12 18:01] LABS: Iron 82 mcg/dL (45-160); Percent Iron Saturation 22 % (15-50); Total Iron Binding Capacity 380 mcg/dL (228-428); Unsaturated Iron Binding 298 ug/dL
[2023-08-12 18:17] LABS: Appearance Urine Clear; Color Urine Yellow; Glucose Urine UA Negative (Negative); Leukocyte Esterase Urine Negative (Negative); Nitrite Urine Negative (Negative); UMIC TRIGGER UACC YES; Urine Blood Moderate (2+) (Negative); Urine Ketones Negative (Negative); Urine Protein Negative (Neg-Trace)
[2023-08-12 18:38] LABS: Bacteria Urine None Seen (None Seen); Hyaline Casts Urine 0-2 /LPF (0-2); Squamous Epithelial Cell Urine 0-2 /HPF (0-2); WBC Urine 0-5 /HPF (0-5)
[2023-08-12 18:38] LABS: Folate 12.5 ng/mL (> or = 4.0); Vitamin B12 353 pg/mL (200-900)
== END 2023-08-12 17:03 | disposition home or self-care (01) ==
LOC: HO.LAB 17:02
PROVIDERS: PCP Internal Medicine; Visit Provider Internal Medicine
DX: D50.9 Iron deficiency anemia, unspecified (principal); D72.10 Eosinophilia, unspecified; E53.8 Deficiency of other specified B group vitamins; D64.9 Anemia, unspecified
CPT/HCPCS: 36415; 81001; 82607; 82746; 83520; 83540

== ENCOUNTER 2023-08-28 13:27 | Outpatient (AMB) | payer OTHER, SELFPAY ==
[2023-08-28 13:28] VITALS: BP 116/74; PULSE 74; O2SAT 97; BMI 26.7
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
== END 2023-08-28 13:49 | disposition home or self-care (01) ==
PROVIDERS: PCP Internal Medicine; Visit Provider Internal Medicine Hypertension Specialist
DX: R31.9 Hematuria, unspecified (principal)
CPT/HCPCS: 99214

== ENCOUNTER → 2023-08-28 13:27 | Outpatient (BNVA) | payer OTHER, SELFPAY | PROVIDERS: PCP Internal Medicine; Visit Provider Internal Medicine Hypertension Specialist | DX: R31.9 Hematuria, unspecified (principal); N05.9 Unspecified nephritic syndrome with unspecified morphologic changes | CPT/HCPCS: 99212 ==

== ENCOUNTER 2023-10-27 09:16 | Outpatient (AMB) | payer OTHER, SELFPAY ==
[2023-10-27 09:28] VITALS: BMI 24.8
--- NOTE | 2023-10-27 09:28 | A.OFFVIS_ITS ---
VS Expanded 10/27/23 09:28 Height 5 ft 10.5 in Weight 175 lb 4.28 oz BMI 24.8 Intake Visit Reasons: anemia/LVM Allergies Seasonal Allergies Allergy (Severe, Verified 08/28/23 13:29) Itchy Eyes Nutrition Presentation Details: Pt presents for MNT for anemia/elevated chol Pt follows a vegetarian diet. Recent labs showed improvement in Tg and HDL however elevated LDL and Tot cholesterol Pt reports working on reducing on empty calorie foods Typical meal consits of B: oatmeal with raisin and honey/milk or water L2 fruits D: rice/kimchie fruits: has mixed nuts, vitamin beverages guadalupe/lentils 0-1/m non starchy vegetable: 2/wk dairy: 2-3 /d physical activity: daily life BS Monitoring Most Recent Diabetes Results: Cholesterol 242 mg/dL (<200) H 07/19/23 HDL Cholesterol 50 mg/dL (>40) 07/19/23 Triglycerides 131 mg/dL (<150) 07/19/23 Creatinine 1.03 mg/dL (0.5-1.4) 07/19/23 Blood Urea Nitrogen 15 mg/dL (9-16) 07/19/23 Sodium 141 mmol/L (135-145) 07/19/23 Potassium 4.7 mmol/L (3.3-5.1) 07/19/23 Chloride 107 mmol/L (96-108) 07/19/23 Carbon Dioxide 27 mmol/L (22-29) 07/19/23 Calcium 9.5 mg/dL (8.4-10.2) 07/19/23 AST 16 U/L (5-37) 07/19/23 ALT 13 U/L (0-40) 07/19/23 Total Protein 7.7 g/dL (6.5-8.0) 07/19/23 Albumin 4.6 g/dL (3.5-5.0) 07/19/23 [facility] Medical History Overweight (BMI 25.0-29.9) Pure hypercholesterolemia Vegetarian diet Surgical History No pertinent past surgical history Family History Mother Rheumatoid arthritis Father No problems noted. Brother No problems noted. Maternal Grandmother Breast cancer Paternal Grandfather Lung cancer Social History Housing: Apartment Alcohol intake: current Alcohol intake frequency: holidays/special occasions only Patient Tobacco Use Status: Former Tobacco user e-Cigarette/Vaping Use: Former Use Second Hand Smoke Exposure: No service: No Current occupational status: employed Current occupational exposures/hazards: No Cognitive needs: No Hearing needs: No Vision needs: Yes (glasses/ contacts) Assessment & Plan Assessment & Plan (1) Anemia: Code(s): D64.9 - Anemia, unspecified Category: Medical Plan: wt: 86 kg , 79 kg (10/2023) Est kcal needs as per MSJ: 2500 (40% carb, 30% protein/fat) Est fluid needs as per 25-30 ml/d: 2600 Est prot per day as per 1 g/kg bw: 86 Recommend fiber intake : 8-10 g per day and gradually increase to 25-28 g per day for women and 35-38 g for men or as tolerated Recommend sodium intake per day : less than 2000 mg Educated patient on: ( R = reviewed V = verbalizes understanding N/R = needs review N/A = not applicable * Food sources of carbohydrate, adequate serving sizes and its role in various health conditions: R ,V * Differences between complex carbohydrates a simple carbohydrates, role of fiber in diet: R , V * Vegetarian protein sources of foods and vegetarian food combinations: R * Differences between types of fats and role in diet (mono on saturated fat fatty acids, saturated fatty acids, trans fats): R * Food sources of sodium in salt and healthy modifications for heart health in kidney health: R * Vitamins and minerals: R * Healthy plate method concept: R * Physical activity: Benefits a precaution: R V * Abstinence from alcohol: R Patient Instructions: * continue working on having a variety of foods in your diet (choose lentils/beans/legumes) * include eggs/egg whites/cashew as part of your lunch or peanut butter sand * include non starchy veg as part of your dinner ( greens/carrots/brussel sprouts, try a variety: fresh, frozen,canned oik - Coding Level of Care Code Nutr Indiv Subseq (61929) Diagnoses Anemia D64.9 Time Spent (min) 30
== END 2023-10-27 10:17 | disposition home or self-care (01) ==
PROVIDERS: PCP Nurse Practitioner Family; Visit Provider Dietitian, Registered
DX: D64.9 Anemia, unspecified (principal)

== ENCOUNTER → 2023-10-27 09:16 | Outpatient (BNVA) | payer OTHER, SELFPAY | PROVIDERS: PCP Nurse Practitioner Family; Visit Provider Dietitian, Registered | DX: D64.9 Anemia, unspecified (principal); F50.82 Avoidant/restrictive food intake disorder; E78.00 Pure hypercholesterolemia, unspecified; Z71.3 Dietary counseling and surveillance | CPT/HCPCS: 97803 ==

== ENCOUNTER 2023-11-12 07:55 | Outpatient (REF) | payer OTHER, SELFPAY ==
[2023-11-12 08:06] LABS: MANUAL DIFF FLAG NO
[2023-11-12 08:30] LABS: Basophils Absolute Auto 0.1 X10*3/uL (0.0-0.2); Basophils Percent Auto 1.1 % (0-2); Eosinophils Absolute Auto 0.3 X10*3/uL (0.0-0.4); Eosinophils Percent Auto 6.4 % (0-4); Hematocrit 38.5 % (42.0-52.0); Hemoglobin 13.2 g/dl (14.0-18.0); Imm Gran Abs Auto 0.02 X10*3/uL (0.00-0.03); Imm Gran Pct Auto 0.4 % (0.0-0.4); Lymphocytes Absolute Auto 1.7 X10*3/uL (1.2-4.9); Lymphocytes Percent Auto 31.3 % (20-40); Mean Corpuscular HGB Conc 34.3 g/dl (31.0-36.0); Mean Corpuscular Hemoglobin 30.6 pg (27.0-33.0); Mean Corpuscular Volume 89.3 fL (80.0-98.0); Mean Platelet Volume 9.5 fL (9.4-12.4); Monocytes Absolute Auto 0.7 X10*3/uL (0.1-1.2); Monocytes Percent Auto 12.4 % (2-11); Neutrophils Absolute Auto 2.6 x10*3/uL (2.0-8.3); Neutrophils Percent Auto 48.4 % (45-73); Platelet Count 261 X10*3/uL (160-400); Red Blood Count 4.31 X10*6/uL (4.60-5.80); Red Cell Distribution Width 12.8 % (11.0-16.0); White Blood Count 5.3 X10*3/uL (4.8-10.8)
[2023-11-12 09:22] LABS: Alanine Aminotransferase 12 U/L (0-40); Albumin Level 4.4 g/dL (3.5-5.0); Alkaline Phosphatase 52 U/L (39-117); Anion Gap 11 (12-20); Aspartate Amino Transferase 16 U/L (5-37); Bilirubin Total 0.9 mg/dL (0.0-1.0); Blood Urea Nitrogen 15 mg/dL (9-16); Calcium 9.6 mg/dL (8.4-10.2); Carbon Dioxide 29 mmol/L (22-29); Chloride 104 mmol/L (96-108); Cholesterol 172 mg/dL (<200); Estimated Glomerular Filt Rate > 60; Glucose Fasting 87 mg/dL (60-99); HDL Cholesterol 43 mg/dL (>40); LDL Cholesterol Calculated 114 mg/dL (<100); Sodium 140 mmol/L (135-145); Total Protein 7.3 g/dL (6.5-8.0); Triglycerides 79 mg/dL (<150)
[2023-11-12 09:25] LABS: Vitamin D 25-OH Total 21.4 ng/mL (>30)
[2023-11-12 09:40] LABS: Appearance Urine Clear; Color Urine Yellow; Glucose Urine UA Negative (Negative); Leukocyte Esterase Urine Negative (Negative); Nitrite Urine Negative (Negative); Specific Gravity - Urine 1.025 (1.005-1.025); UMIC TRIGGER UACC YES; Urine Blood Moderate (2+) (Negative); Urine Ketones Negative (Negative); Urine Protein Negative (Neg-Trace)
[2023-11-12 09:51] LABS: Bacteria Urine None Seen (None Seen); Hyaline Casts Urine 0-2 /LPF (0-2); RBC Urine >20 /HPF (0-2); Squamous Epithelial Cell Urine 0-2 /HPF (0-2); WBC Urine 0-5 /HPF (0-5)
[2023-11-21 02:33] LABS: IgE Antibody (Anti-IgE IgG) 13 ng/mL (<168)
== END 2023-11-12 07:56 | disposition home or self-care (01) ==
LOC: HO.LAB 07:55
PROVIDERS: PCP Internal Medicine; Visit Provider Internal Medicine
DX: E78.00 Pure hypercholesterolemia, unspecified (principal); D72.10 Eosinophilia, unspecified; E55.9 Vitamin D deficiency, unspecified; D64.9 Anemia, unspecified
CPT/HCPCS: 36415; 80053; 80061; 81001; 81003; 82306; 83520; 85025

== ENCOUNTER 2023-11-18 15:07 | Outpatient (AMB) | payer OTHER, SELFPAY ==
[2023-11-18 15:19] VITALS: BP 124/86; PULSE 59; O2SAT 98; BMI 24.5
--- NOTE | 2023-11-18 15:19 | MHC.PC.OV ---
Vital Signs 11/18/23 15:19 Height 5 ft 10.5 in Weight 173 lb 0.4 oz BMI 24.5 BP 124/86 Blood Pressure Location Lt brachial Position Sitting Pulse 59 Pulse Source Pulse Oximeter Pulse Oximetry (%) 98 Oxygen Delivery Method Room Air Intake Visit Reasons: follow up Heel Gouger Required: No Allergies Seasonal Allergies Allergy (Severe, Verified 11/19/23 05:02) Itchy Eyes Medication List - Last Reconciled 11/19/23 by Sourav Jean Baptiste MD cetirizine (Zyrtec) 10 mg PO DAILY Tobacco use date assessed: 08/12/23 Dental Screening Dental Screen Date: 08/12/23 HPI follow up HPI Details Patient comes in today for his follow-up visit States that he feels okay He has been meeting with an seeing tnt powder worker here at [facility] for the past few months and has been able to make a lot of productive changes to his diet - states that he needs a new referral to be able to continue seeing the tnt powder worker He has lost some weight as well over the past few months as a result of his dietary changes and states that he feels much better with his weight loss and on his current diet He denies any headaches or dizziness Denies any chest pains, no shortness of breath No nausea / vomiting, no abdominal pain No change in bowel habits noted He had his follow-up labs done last week - to discuss his results [facility] Medical History Vitamin D deficiency Overweight (BMI 25.0-29.9) Pure hypercholesterolemia Vegetarian diet Surgical History No pertinent past surgical history Family History Mother Rheumatoid arthritis Father No problems noted. Brother No problems noted. Maternal Grandmother Breast cancer Paternal Grandfather Lung cancer Social History Housing: Apartment Alcohol intake: current Alcohol intake frequency: holidays/special occasions only Patient Tobacco Use Status: Former Tobacco user e-Cigarette/Vaping Use: Former Use Second Hand Smoke Exposure: No service: No Current occupational status: employed Current occupational exposures/hazards: No Cognitive needs: No Hearing needs: No Vision needs: Yes (glasses/ contacts) Questionnaire Thrive Questionnaire Date Thrive assessed: 08/12/23 AUDIT C Alcohol Use Questionnaire (AUDIT-C) 1. How often do you have a drink containing alcohol?: Monthly or less 2. How many drinks containing alcohol do you have on a typical day when you are drinking?: 1 or 2 3. How often do you have six or more drinks on one occasion?: Never Total Score: 1 Score Reviewed/Action Taken: Yes MILEY-7 AMB Questionnaire MILEY-7 Date MILEY - 7 assessed: 08/12/23 Source: Developed by Drs. Shyam Rivero, Richelle Mccurdy, Jatin Hoffman and colleagues, with an educational vinnie from [employer]. Review of Systems Const Denies chills, Denies fatigue, Denies fever(s) and Denies headache(s) ENT Denies dysphagia, Denies dizziness, Denies otalgia, Denies headache(s), Denies neck pain, Denies odynophagia and Denies sore throat Card Denies chest pain, Denies palpitations and Denies dyspnea Resp Denies cough and Denies dyspnea GI Denies abdominal pain, Denies constipation, Denies dysphagia, Denies heartburn, Denies diarrhea, Denies nausea, Denies odynophagia and Denies vomiting Denies dysuria, Denies nocturia and Denies urinary frequency Musc Denies back pain and Denies neck pain Skin/Breast Denies rash Neuro Denies dizziness and Denies headache(s) Endo Denies fatigue and Denies palpitations Physical exam (Primary Care) Vital Signs: Last Vital Signs Pulse 59 11/18/23 15:19 BP 124/86 11/18/23 15:19 Pulse Ox 98 11/18/23 15:19 Oxygen Delivery Method Room Air 11/18/23 15:19 BMI result Body Mass Index 24.5 Tobacco/Smoking Status: Tobacco use Status Tobacco use date assessed 08/12/23 11/18/23 15:23 Patient Tobacco Use Status Former Tobacco user 11/18/23 15:23 e-Cigarette/Vaping Use Former Use 11/18/23 15:23 Thrive Assessment: Date of Thrive Assessment Date Thrive assessed 08/12/23 11/18/23 15:23 Const General: no acute distress and alert HENMT Throat: Yes posterior oropharynx normal and Yes tonsils normal (no TP congestion) Neck Neck: Yes no lymphadenopathy and Yes supple Thyroid: Thyroid normal Resp Auscultation: clear to auscultation bilaterally, no rales and no wheezes Cardio Rate: regular rate Rhythm: regular rhythm Heart sounds: no murmurs GI Palpation (GI): Soft to palpation and nontender Auscultation: normal bowel sounds General: Yes no CVA tenderness Back/Spine/Pelvis Back: no CVA tenderness Skin Rashes: no rashes Extrem General: Yes no clubbing, cyanosis or edema Results Reviewed Results Reviewed: Laboratory Tests 11/12/23 11/12/23 08:05 08:10 WBC 5.3 Hgb 13.2 L Hct 38.5 L Plt Count 261 Sodium 140 Potassium 4.0 Creatinine 1.02 Estimated GFR > 60 Fasting Glucose 87 Calcium 9.6 AST 16 ALT 12 Triglycerides 79 Cholesterol 172 LDL Cholesterol, Calc 114 H HDL Cholesterol 43 25-OH Vitamin D Total 21.4 L Ur Specific Percy 1.025 Urine Protein Negative Urine Glucose (UA) Negative Urine Blood Moderate (2+) H Urine Nitrite Negative Ur Leukocyte Esterase Negative Assessment and Plan Assessment & Plan (1) Pure hypercholesterolemia: Code(s): E78.00 - Pure hypercholesterolemia, unspecified Plan: Results of his labs done last week reviewed and discussed with patient - advised that his cholesterol levels have improved from previous with the dietary changes that he has made under the guidance of his tnt powder worker He is continuing with his vegetarian diet but has cut out a lot of the processed foods that he used to eat Reinforced low cholesterol diet He would like to continue seeing his tnt powder worker and is requesting for another referral as it has been over a year now since he was first referred and they apparently need a new referral every year - referral done Will recheck his labs and fasting lipids in 6 months for follow-up (2) Eosinophilia: Code(s): D72.10 - Eosinophilia, unspecified Qualifiers: Eosinophilia type: unspecified eosinophilia Qualified Code(s): D72.10 - Eosinophilia, unspecified Plan: His CBC continues to present with persistent eosinophilia although his numbers have decreased from previous He reports that he has allergies and takes either OTC Loratadine 10 mg or Cetirizine 10 mg QD PRN He was referred to and is now seeing allergy and immunology in [place] (Dr. 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 Plan: He has been seen and worked up by Nephrology for this and his workups have all so far been negative Will continue to monitor his urine and renal function regularly Follow-up with nephrology as scheduled (4) Vitamin D deficiency: Code(s): E55.9 - Vitamin D deficiency, unspecified Plan: He is advised that his vitamin-D level was low on his recent labs Will start him on vitamin D3 2000 units QD Plan To return in 6 months for his annual physical examination Orders: Orders Complete Blood Count Auto Diff 6 Months D64.9 - Anemia, unspecified, Z00.00 - Encounter for general adult medical examination without abnormal findings Vitamin D 25-OH Total 6 Months E55.9 - Vitamin D deficiency, unspecified, Z00.00 - Encounter for general adult medical examination without abnormal findings Comprehensive [place]. Panel Fast 6 Months E78.00 - Pure hypercholesterolemia, unspecified, Z00.00 - Encounter for general adult medical examination without abnormal findings Lipid Panel 6 Months E78.00 - Pure hypercholesterolemia, unspecified, Z00.00 - Encounter for general adult medical examination without abnormal findings TSH reflex Free T4 6 Months E78.00 - Pure hypercholesterolemia, unspecified, Z00.00 - Encounter for general adult medical examination without abnormal findings UA CC w/rflx Micro + Cult 6 Months R30.0 - Dysuria, Z00.00 - Encounter for general adult medical examination without abnormal findings Referrals Nutrition/Dietitian Referral D72.10 - Eosinophilia, unspecified, E78.00 - Pure hypercholesterolemia, unspecified, R31.1 - Benign essential microscopic hematuria, Z78.9 - Other specified health status Medications: New cholecalciferol (vitamin D3) 50 mcg PO DAILY 90 days 90 caps 3RF E55.9 - Vitamin D deficiency, unspecified Coding Level of Care Code Est Pt Level 4 (57649) Diagnoses Pure hypercholesterolemia E78.00 Eosinophilia, unspecified type D72.10 Eosinophilia type: unspecified eosinophilia 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 type: benign essential microscopic Vitamin D deficiency E55.9
== END 2023-11-18 16:01 | disposition home or self-care (01) ==
PROVIDERS: PCP Internal Medicine; Visit Provider Internal Medicine
DX: E78.00 Pure hypercholesterolemia, unspecified (principal); D72.10 Eosinophilia, unspecified; R31.1 Benign essential microscopic hematuria; E55.9 Vitamin D deficiency, unspecified
CPT/HCPCS: 99214

== ENCOUNTER 2024-03-16 13:11 | Outpatient (REF) | payer OTHER, SELFPAY ==
[2024-03-17 07:59] LABS: Lyme Abs Screen <0.90 index
== END 2024-03-16 13:12 | disposition home or self-care (01) ==
LOC: HO.LAB 13:11
PROVIDERS: PCP Internal Medicine; Visit Provider Internal Medicine
DX: T14.8XXA Other injury of unspecified body region, initial encounter (principal); W57.XXXA Bitten or stung by nonvenomous insect and other nonvenomous arthropods, initial encounter
CPT/HCPCS: 36415; 86617; 86618

== ENCOUNTER 2024-04-27 08:24 | Outpatient (AMB) | payer OTHER, SELFPAY ==
[2024-04-27 08:34] VITALS: BMI 25.9
--- NOTE | 2024-04-27 08:34 | A.OFFVIS_ITS ---
VS Expanded 04/27/24 08:34 Height 5 ft 10.5 in Weight 182 lb 12.211 oz BMI 25.9 Intake Visit Reasons: Anemia/Confirmed Allergies Seasonal Allergies Allergy (Severe, Verified 11/19/23 05:02) Itchy Eyes Nutrition Presentation Details: Pt presents for MNT f/u for hypercholesterolemia with hx of hematuria, eosinophilia Pt reports getting allergy shot Overall feeling well and more energetic Pt following a vegetarian diet,incorporating fruits /vegetables and grains , seeds Pt is working on making home made meals and relying less on processed foods Pt reading labels and paying attention to amount of saturated fats and vitamin fortification Has a multivitamin fortified supplement couple of times in the week 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 activity - 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 and also participates in gym ETOH: occ BS Monitoring Most Recent Diabetes Results: Cholesterol 172 mg/dL (<200) 11/12/23 HDL Cholesterol 43 mg/dL (>40) 11/12/23 Triglycerides 79 mg/dL (<150) 11/12/23 Creatinine 1.02 mg/dL (0.5-1.4) 11/12/23 Blood Urea Nitrogen 15 mg/dL (9-16) 11/12/23 Sodium 140 mmol/L (135-145) 11/12/23 Potassium 4.0 mmol/L (3.3-5.1) 11/12/23 Chloride 104 mmol/L (96-108) 11/12/23 Carbon Dioxide 29 mmol/L (22-29) 11/12/23 Calcium 9.6 mg/dL (8.4-10.2) 11/12/23 AST 16 U/L (5-37) 11/12/23 ALT 12 U/L (0-40) 11/12/23 Total Protein 7.3 g/dL (6.5-8.0) 11/12/23 Albumin 4.4 g/dL (3.5-5.0) 11/12/23 PFSH Medical History Vitamin D deficiency Overweight (BMI 25.0-29.9) Pure hypercholesterolemia Vegetarian diet Surgical History No pertinent past surgical history Family History Mother Rheumatoid arthritis Father No problems noted. Brother No problems noted. Maternal Grandmother Breast cancer Paternal Grandfather Lung cancer Social History Housing: Apartment Alcohol intake: current Alcohol intake frequency: holidays/special occasions only Patient Tobacco Use Status: Former Tobacco user e-Cigarette/Vaping Use: Former Use Second Hand Smoke Exposure: No service: No Current occupational status: employed Current occupational exposures/hazards: No Cognitive needs: No Hearing needs: No Vision needs: Yes (glasses/ contacts) Assessment & Plan Assessment & Plan (1) Anemia: Code(s): D64.9 - Anemia, unspecified Category: Medical Plan: wt: 86 kg , 79 kg (10/2023), 83 kg (05/04) Est kcal needs as per MSJ: 2500 (40% carb, 30% protein/fat) Est fluid needs as per 25-30 ml/d: 2600 Est prot per day as per 1 g/kg bw: 86 Recommend fiber intake : 8-10 g per day and gradually increase to 25-28 g per day for women and 35-38 g for men or as tolerated Recommend sodium intake per day : less than 2000 mg Educated patient on: ( R = reviewed V = verbalizes understanding N/R = needs review N/A = not applicable * Food sources of carbohydrate, adequate serving sizes and its role in various health conditions: R ,V * Differences between complex carbohydrates a simple carbohydrates, role of fiber in diet: R , V * Vegetarian protein sources of foods and vegetarian food combinations: R * Differences between types of fats and role in diet (mono on saturated fat fatty acids, saturated fatty acids, trans fats): R * Food sources of sodium in salt and healthy modifications for heart health in kidney health: R * Vitamins and minerals: R (vitamin D and importance of fat for absorption , b vitamins and vitamin C combo * Healthy plate method concept: R * Physical activity: Benefits a precaution: R V * Abstinence from alcohol: R Patient Instructions: Add nutritional yeast to your foods 1-2 tbsp per day (has protein and b vitamins) Incorporate foods fortified with Vitamin D (fortified juice, fortified tofu/tempeh, oranges, mushroom, cereals and combine with a monounsaturated fat ( nuts, seeds as example) Keep physically active as able and keep hydrated (water, juices, broth) Coding Level of Care Code Nutr Indiv Subseq (54626) Diagnoses Anemia D64.9 Time Spent (min) 30
== END 2024-04-27 10:01 | disposition home or self-care (01) ==
PROVIDERS: PCP Nurse Practitioner Family; Visit Provider Dietitian, Registered
DX: D64.9 Anemia, unspecified (principal)

== ENCOUNTER → 2024-04-27 08:24 | Outpatient (BNVA) | payer OTHER, SELFPAY | PROVIDERS: PCP Nurse Practitioner Family; Visit Provider Dietitian, Registered | DX: D64.9 Anemia, unspecified (principal) | CPT/HCPCS: 97803 ==

== ENCOUNTER 2024-05-24 07:02 | Outpatient (REF) | payer OTHER, SELFPAY ==
[2024-05-24 07:12] LABS: MANUAL DIFF FLAG NO
[2024-05-24 07:38] LABS: Basophils Absolute Auto 0.1 X10*3/uL (0.0-0.2); Basophils Percent Auto 1.1 % (0-2); Eosinophils Absolute Auto 0.4 X10*3/uL (0.0-0.4); Eosinophils Percent Auto 7.4 % (0-4); Hematocrit 39.8 % (42.0-52.0); Hemoglobin 13.6 g/dl (14.0-18.0); Imm Gran Abs Auto 0.03 X10*3/uL (0.00-0.03); Imm Gran Pct Auto 0.5 % (0.0-0.4); Lymphocytes Absolute Auto 1.9 X10*3/uL (1.2-4.9); Lymphocytes Percent Auto 34.6 % (20-40); Mean Corpuscular HGB Conc 34.2 g/dl (31.0-36.0); Mean Corpuscular Hemoglobin 30.2 pg (27.0-33.0); Mean Corpuscular Volume 88.4 fL (80.0-98.0); Monocytes Absolute Auto 0.7 X10*3/uL (0.1-1.2); Monocytes Percent Auto 11.7 % (2-11); Neutrophils Absolute Auto 2.5 x10*3/uL (2.0-8.3); Neutrophils Percent Auto 44.7 % (45-73); Platelet Count 331 X10*3/uL (160-400); Red Cell Distribution Width 12.6 % (11.0-16.0); White Blood Count 5.6 X10*3/uL (4.8-10.8)
[2024-05-24 08:11] LABS: Alanine Aminotransferase 22 U/L (0-40); Albumin Level 4.5 g/dL (3.5-5.0); Alkaline Phosphatase 52 U/L (39-117); Anion Gap 11 (12-20); Aspartate Amino Transferase 28 U/L (5-37); Bilirubin Total 0.8 mg/dL (0.0-1.0); Blood Urea Nitrogen 16 mg/dL (9-16); Calcium 9.6 mg/dL (8.4-10.2); Carbon Dioxide 30 mmol/L (22-29); Chloride 103 mmol/L (96-108); Cholesterol 153 mg/dL (<200); Estimated Glomerular Filt Rate > 60; Glucose Fasting 92 mg/dL (60-99); HDL Cholesterol 39 mg/dL (>40); LDL Cholesterol Calculated 100 mg/dL (<100); Potassium 4.1 mmol/L (3.3-5.1); Sodium 140 mmol/L (135-145); Total Protein 7.7 g/dL (6.5-8.0); Triglycerides 70 mg/dL (<150)
[2024-05-24 08:28] LABS: TSH reflex Free T4 1.87 uIU/mL (0.32-4.0); Vitamin D 25-OH Total 27.3 ng/mL (>30)
[2024-05-24 08:31] LABS: Appearance Urine Clear; Color Urine Dark Yellow; Glucose Urine UA Negative (Negative); Leukocyte Esterase Urine Negative (Negative); Nitrite Urine Negative (Negative); Specific Gravity - Urine 1.025 (1.005-1.025); UMIC TRIGGER UACC YES; Urine Blood Moderate (2+) (Negative); Urine Ketones Negative (Negative); Urine Protein Negative (Neg-Trace)
[2024-05-24 08:37] LABS: Bacteria Urine None Seen (None Seen); Hyaline Casts Urine 0-2 /LPF (0-2); RBC Urine >20 /HPF (0-2); Squamous Epithelial Cell Urine 0-2 /HPF (0-2); WBC Urine 0-5 /HPF (0-5)
== END 2024-05-24 07:03 | disposition home or self-care (01) ==
LOC: HO.LAB 07:02
PROVIDERS: PCP Internal Medicine; Visit Provider Internal Medicine
DX: Z00.00 Encounter for general adult medical examination without abnormal findings (principal); E78.00 Pure hypercholesterolemia, unspecified; D64.9 Anemia, unspecified; E55.9 Vitamin D deficiency, unspecified; N02.8 Recurrent and persistent hematuria with other morphologic changes; R30.0 Dysuria
CPT/HCPCS: 36415; 80053; 80061; 81001; 82306; 84443; 85025

== ENCOUNTER 2024-06-30 10:17 | Outpatient (REF) | payer OTHER, SELFPAY ==
--- NOTE | ~2024-06-30 | XR_ITS ---
CLINICAL HISTORY: R06.00 - Dyspnea, unspecified 2 view chest x-ray Comparison: 10/08/2022 Findings: Lungs are clear without acute infiltrates. No pneumothorax. Heart size normal. No acute bony abnormalities. Impression: No acute processes This document has been electronically signed by: Slava Sands MD on 06/30/2024 21:32:09
--- OUTSIDE RECORDS SUMMARY | 2024-06-30 12:39 | XMS_ITS | Clinical Summary ---
Author Organization [facility] Facility Address [address] [address] Care Team Providers Care Instructor Bridge Name Role Phone Unavailable Primary Care Provider [...]
== END 2024-06-30 10:18 | disposition home or self-care (01) ==
LOC: HO.XRAY 10:17
PROVIDERS: PCP Internal Medicine; Visit Provider Internal Medicine
DX: Z00.00 Encounter for general adult medical examination without abnormal findings (principal); E78.00 Pure hypercholesterolemia, unspecified; D64.9 Anemia, unspecified; D72.821 Monocytosis (symptomatic); D72.10 Eosinophilia, unspecified; R06.00 Dyspnea, unspecified; E55.9 Vitamin D deficiency, unspecified; R31.1 Benign essential microscopic hematuria; Z91.09 Other allergy status, other than to drugs and biological substances; Z77.090 Contact with and (suspected) exposure to asbestos
CPT/HCPCS: 71046; 96127; 99395

== ENCOUNTER 2024-06-30 10:17 | Outpatient (AMB) | payer OTHER, SELFPAY ==
[2024-06-30 10:48] VITALS: BP 110/82; PULSE 86; O2SAT 99; BMI 25.7
--- NOTE | 2024-06-30 10:48 | A.OFFPC_ITS ---
Vital Signs 06/30/24 10:48 Height 5 ft 10.5 in Weight 181 lb 8 oz BMI 25.7 BP 110/82 Blood Pressure Location Lt brachial Position Sitting Pulse 86 Pulse Source Pulse Oximeter Pulse Oximetry (%) 99 Oxygen Delivery Method Room Air Intake Visit Reasons: annual exam Occup Ther Required: No Accompanied by: Self / Same As Patient Allergies Seasonal Allergies Allergy (Severe, Verified 06/30/24 11:39) Itchy Eyes Medication List - Last Reconciled 06/30/24 by Sourav Jean Baptiste MD cetirizine (Zyrtec) 10 mg PO DAILY cholecalciferol (vitamin D3) 50 mcg PO DAILY 90 days Tobacco use date assessed: 06/30/24 Dental Screening Dental Screen Date: 06/30/24 HPI annual exam HPI Details Patient comes in today for his annual physical examination States that he currently feels okay but relates that he had a bout of bronchitis about 2 months ago, which she states improved with some antibiotics He also tested positive for COVID about 3 weeks ago and states that he's had some cough and congestion for a while before his symptoms gradually cleared up Notes that he is still currently experiencing some lingering shortness of breath at times, especially with exertion, and occasional nonproductive coughing 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 that 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 and he is often in an environment filled with dust and he is concerned about potential asbestos exposure He denies any headaches or dizziness; denies any sore throat Denies any chest pains No nausea/vomiting, no abdominal pain No change in bowel habits noted He denies any acute urinary symptoms He had his follow-up labs done last month - to discuss his results [facility] Medical History Vitamin D deficiency Overweight (BMI 25.0-29.9) Pure hypercholesterolemia Vegetarian diet Surgical History No pertinent past surgical history Family History Mother Rheumatoid arthritis Father No problems noted. Brother No problems noted. Maternal Grandmother Breast cancer Paternal Grandfather Lung cancer Social History Housing: Apartment Alcohol intake: current Alcohol intake frequency: holidays/special occasions only Patient Tobacco Use Status: Former Tobacco user e-Cigarette/Vaping Use: Former Use Second Hand Smoke Exposure: No service: No Current occupational status: employed Current occupational exposures/hazards: No Cognitive needs: No Hearing needs: No Vision needs: Yes (glasses/ contacts) Questionnaire PHQ-9 Over the last 2 weeks, how often have you been bothered by any of the following problems? 1. Little interest or pleasure in doing things: not at all 2. Feeling down, depressed, or hopeless: not at all 3. Trouble falling or staying asleep, or sleeping too much: not at all 4. Feeling tired or having little energy: not at all 5. Poor appetite or overeating: not at all 6. Feeling bad about yourself - or that you are a failure or have let yourself or your family down: not at all 7. Trouble concentrating on things, such as reading the newspaper or watching television: not at all 8. Moving or speaking so slowly that other people could have noticed. Or the opposite - being so fidgety or restless that you have been moving around a lot more than usual: not at all 9. Thoughts that you would be better off or of hurting yourself in some way: not at all Total score: 0 Depression Screening Interpretation: Negative Depression Screening Done: Yes 18248 - PHQ-9 Billing: Yes Source: Developed by Drs. Shyam Rivero, Richelle Mccurdy, Jatin Hoffman and colleagues, with an educational vinnie from [employer]. Thrive Questionnaire Date Thrive assessed: 06/30/24 I am a: Patient What is your living situation today?: I choose not to answer this question Within the past 12 months, did the food you bought not last and you didn't have the money to get more?: I choose not to answer this question Within the past 12 months, did you worry whether your food would run out before you got money to buy more?: I choose not to answer this question Do you have trouble paying for medicines?: I choose not to answer this question Do you have trouble getting transportation to medical appointments?: I choose not to answer this question Do you have trouble paying your heating and electricity bill?: I choose not to answer this question Do you have trouble taking care of your child, family member or friend?: I choose not to answer this question Do you have trouble with day-to-day activities such as bathing, preparing meals, shopping, managing finances, etc.?: I choose not to answer this question Are you currently unemployed and looking for a job?: I choose not to answer this question Are you interested in more education?: I choose not to answer this question Please select the resources that you would like help with: None Currently or been in a relationship where the following occur: I choose not to answer THRIVE Score: 0 AUDIT C Alcohol Use Questionnaire (AUDIT-C) 1. How often do you have a drink containing alcohol?: Monthly or less 2. How many drinks containing alcohol do you have on a typical day when you are drinking?: 1 or 2 3. How often do you have six or more drinks on one occasion?: Never Total Score: 1 Score Reviewed/Action Taken: Yes MILEY-7 AMB Questionnaire MILEY-7 Date MILEY - 7 assessed: 06/30/24 Feeling nervous, anxious, or on edge: 1 = Several days Not being able to stop or control worryin = Not at all Worrying too much about different things: 1 = Several days Trouble relaxin = Several days Being so restless that it is hard to sit still: 1 = Several days Becoming easily annoyed or irritable: 1 = Several days Feeling afraid as if something awful might happen: 1 = Several days Total MILEY-7 score (0-4 normal; 5-9 mild; 10-14 moderate; 15-21 severe): 6 Source: Developed by Drs. Shyam Rivero, Richelle Mccurdy, Jatin Hoffman and colleagues, with an educational vinnie from [employer]. Review of Systems Const Denies chills, Denies fatigue, Denies fever(s), Denies headache(s), Denies malaise and Denies weakness Eyes Denies blurry vision, Denies change in vision, Denies irritation and Denies itchy eyes ENT Denies dysphagia, Denies dizziness, Denies otalgia, Denies headache(s), Denies nasal congestion, Denies neck pain, Denies odynophagia and Denies sore throat Card Denies chest pain, Denies rapid heart rate, Denies irregular heart rhythm, Denies palpitations and Reports dyspnea on exertion (mild, at times) Resp Denies chest congestion, Reports cough (occasional, non-productive), Reports dyspnea on exertion (mild, at times) and Denies wheezing GI Denies abdominal pain, Denies bloating, Denies constipation, Denies dysphagia, Denies heartburn, Denies diarrhea, Denies nausea, Denies odynophagia and Denies vomiting Denies hematuria, Denies difficulty urinating, Denies dysuria, Denies urinary frequency and Denies urinary urgency Musc Denies back pain, Denies arthralgias, Denies joint swelling, Denies muscle weakness and Denies neck pain Skin/Breast Denies change in pigmentation, Denies lesions, Denies rash and Denies unusual bruising Neuro Denies dizziness, Denies headache(s), Denies paresthesias and Denies weakness Endo Denies fatigue and Denies palpitations Aller/Immun Denies itchy eyes and Denies wheezing Physical exam (Primary Care) Vital Signs: Last Vital Signs Pulse 86 06/30/24 10:48 BP 110/82 06/30/24 10:48 Pulse Ox 99 06/30/24 10:48 Oxygen Delivery Method Room Air 06/30/24 10:48 BMI result Body Mass Index 25.7 Tobacco/Smoking Status: Tobacco use Status Tobacco use date assessed 06/30/24 06/30/24 10:49 Patient Tobacco Use Status Former Tobacco user 06/30/24 10:49 e-Cigarette/Vaping Use Former Use 06/30/24 10:49 PHQ-9: PHQ-9 Score PHQ-9: Total score 0 06/30/24 12:48 Depression Screening Interpretation: Negative Thrive Assessment: Date of Thrive Assessment Date Thrive assessed 06/30/24 06/30/24 10:49 Currently or been in a relationship where the following occur: I choose not to answer Const General: no acute distress, alert and awake Orientation/consciousness: patient oriented x3 HENMT Head: Yes normocephalic and Yes atraumatic Ears: external ears normal, TM's normal bilaterally and EAC's normal General nose exam: No nasal discharge present Face and sinus: Yes normal facial exam and Yes sinuses nontender Teeth and gingiva: dentition normal Throat: Yes posterior oropharynx normal and Yes tonsils normal (no TP congestion) Eyes Eyelids: Yes eyelids normal Conjunctivae: conjunctivae normal Pupils: Equal, round and reactive pupils present EOM: EOMs intact bilaterally Neck Neck: Yes no lymphadenopathy and Yes supple Thyroid: Thyroid normal Resp Auscultation: clear to auscultation bilaterally, no rales and no wheezes Cardio Rate: regular rate Rhythm: regular rhythm Heart sounds: no murmurs GI Palpation (GI): Soft to palpation, nontender and No hepatosplenomegaly present Auscultation: normal bowel sounds General: Yes no CVA tenderness Back/Spine/Pelvis Back: no CVA tenderness Thoracic/Lumbar Spine: thoracic and lumbar spine normal to inspection Skin Lesions: no lesions Rashes: no rashes Neuro General: patient oriented x3, moves all extremities, no focal motor deficits and CN's II-XI intact bilaterally Cranial nerves: Yes Equal, round and reactive pupils present Cognition (Neuro): normal cognition Gait exam (Neuro): Normal gait present Extrem General: Yes no clubbing, cyanosis or edema Results Reviewed Results Reviewed: Laboratory Tests 05/24/24 05/24/24 07:05 07:06 WBC 5.6 Hgb 13.6 L Hct 39.8 L Plt Count 331 D Sodium 140 Potassium 4.1 Creatinine 0.92 Estimated GFR > 60 Fasting Glucose 92 Calcium 9.6 AST 28 ALT 22 Triglycerides 70 Cholesterol 153 LDL Cholesterol, Calc 100 H HDL Cholesterol 39 L 25-OH Vitamin D Total 27.3 L TSH 1.87 Ur Specific [place] 1.025 Urine Protein Negative Urine Glucose (UA) Negative Urine Blood Moderate (2+) H Urine Nitrite Negative Ur Leukocyte Esterase Negative Coding Level of Care Code Est Pt Prev Care 18-39y(19248) Diagnoses Annual physical exam Z00.00 Pure hypercholesterolemia E78.00 Anemia, unspecified type D64.9 Anemia type: unspecified type Monocytosis D72.821 Eosinophilia, unspecified type D72.10 Eosinophilia type: unspecified eosinophilia Dyspnea, unspecified type R06.00 Dyspnea type: unspecified Vitamin D deficiency E55.9 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 type: benign essential microscopic Environmental allergies Z91.09 Additional Codes PHQ-9 - 99364 - PHQ-9 Billing: Yes ([id number]) Assessment & Plan Assessment & Plan (1) Annual physical exam: Code(s): Z00.00 - Encounter for general adult medical examination without abnormal findings Category: Medical Plan: Results of his labs done last month reviewed and discussed with patient (2) Pure hypercholesterolemia: Code(s): E78.00 - Pure hypercholesterolemia, unspecified Category: Medical Plan: Patient's cholesterol levels have improved significantly over the past year - states that he has been on a vegetarian diet for a while now and is glad that this is reflecting in his cholesterol numbers Reinforced low-cholesterol diet Will recheck his labs and fasting lipids in 6 months for follow-up (3) Anemia: Code(s): D64.9 - Anemia, unspecified Category: Medical Qualifiers: Anemia type: unspecified type Qualified Code(s): D64.9 - Anemia, unspecified Plan: Patient has been presenting with mild anemia consistently on his labs done over the past couple of years His iron levels were normal when checked last year Peripheral smear also came back normal He is being referred to hematology for further evaluation and management of his monocytosis and he will likely have this evaluated as well Will continue to monitor his CBC regularly (4) Monocytosis: Code(s): D72.821 - Monocytosis (symptomatic) Category: Medical Plan: Patient has also been presenting with mild monocytosis on his CBC done over the past couple of years A peripheral smear done last year (2023) came back normal Will refer him to Hematology for further evaluation and management (5) Eosinophilia: Code(s): D72.10 - Eosinophilia, unspecified Category: Medical Qualifiers: Eosinophilia type: unspecified eosinophilia Qualified Code(s): D72.10 - Eosinophilia, unspecified Plan: His CBC continues to present with persistent eosinophilia although his numbers have decreased from previous He reports that he has allergies and takes either OTC Loratadine 10 mg or Cetirizine 10 mg QD PRN He was referred to and is now seeing allergy and immunology in [place] (Dr. 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 He also reports experiencing on and off shortness of breath and occasional cough Will send him for chest x-rays for further evaluation Will also refer him for PFTs for further evaluation of his dyspnea (7) Vitamin D deficiency: Code(s): E55.9 - Vitamin D deficiency, unspecified Category: Medical Plan: Continue Vitamin D3 2000 units QD (8) Hematuria: Code(s): R31.9 - Hematuria, unspecified Category: Medical Qualifiers: Hematuria type: benign essential microscopic Qualified Code(s): R31.1 - Benign essential microscopic hematuria Plan: He has been seen and worked up by Nephrology for this and his workups have all so far been negative Will continue to monitor his urine and renal function regularly Follow-up with nephrology as scheduled (9) Environmental allergies: Code(s): Z91.09 - Other allergy status, other than to drugs and biological substances Category: Medical Plan Continue OTC Loratadine 10 mg or Cetirizine 10 mg QD PRN He was referred to and is now seeing allergy and immunology in [place] (Dr. Keys) and getting allergy injections regularly Orders: Orders XR chest 2V 06/30/24 R06.00 - Dyspnea, unspecified, Z77.090 - Contact with and (suspected) exposure to asbestos UA CC w/rflx Micro + Cult 6 Months R30.0 - Dysuria Urine Cytology 6 Months R31.1 - Benign essential microscopic hematuria PFT pulmonary function test 06/30/24 R06.00 - Dyspnea, unspecified, Z77.090 - Contact with and (suspected) exposure to asbestos Complete Blood Count Auto Diff 6 Months D64.9 - Anemia, unspecified Lipid Panel 6 Months E78.00 - Pure hypercholesterolemia, unspecified Referrals Hematology & Oncology Referral D64.9 - Anemia, unspecified, D72.10 - Eosinophilia, unspecified, D72.821 - Monocytosis (symptomatic)
--- OUTSIDE RECORDS SUMMARY | 2024-06-30 10:52 | XMS_ITS | Clinical Summary ---
Author Organization [facility] Facility Address [address] [address] Care Team Providers Care Race Starter Name Role Phone Unavailable Primary Care Provider Unavailabl e Allergies No known active allergies Medications LORATADINE PO Take by mouth 2 Active cetirizine (ZyrTEC) 10 MG tablet Take 10 mg by mouth 2 Active amphetamine-dex troamphetamine (Adderall) 5 MG tablet Take 5 mg by mouth 2 Active Calcium-Magnesi um 250-125 MG tablet Take by mouth Active b complex vitamins capsule Take 1 capsule by mouth 1 (one) time each day Active ferrous sulfate 325 (65 Fe) MG tablet Take 325 mg by mouth 1 (one) time each day with breakfast Active Family History Medical History Relation Comments Hypertension Father Diabetes Mother Hypertension Mother Cancer Mother's Brother Cancer Paternal Grandmother Relation Status Comments Father Alive Mother Alive Mother's Brother Paternal Grandmother Social History Tobacco Use Types Packs/Day Years Used Date Smoking Tobacco: Never Tobacco Cessation:Counseling Given: Not Answered Alcohol Use Standard Drinks/Week Comments Never 0 (1 standard drink = 0.6 oz pur e alcohol) Sex and Gender Information Value Date Recorded Sex Assigned at Not on file Legal Sex Male 9:37 AM EDT Gender Identity Not on file Sexual Orientation Not on file Last Filed Vital Signs Vital Sign Reading Time Taken Comments Blood Pressure 140/100 02/03/2023 2:57 PM EDT Pulse 88 02/03/2023 2:57 PM EDT Temperature - - Respiratory Rate - - Oxygen Saturation 99% 02/03/2023 2:57 PM EDT Inhaled Oxygen Concentration - - Weight 91.1 kg (200 lb 12.8 oz) 02/03/2023 2:57 PM EDT Height - - Body Mass Index - - Plan of Treatment Health Maintenance Due Date Last Done Comments Hepatitis B Vaccine (1 of 3 - 19+ 3-dose series) 2004 Influenza Vaccine (#1) 2024 Pneumococcal Vaccine: Pediat rics (0 to 5 Years) and At-Risk Patients (6 to 64 Years) Aged Out No longer eligi ble based on patient's age to complete this topic Insurance MEDICAID
== END 2024-06-30 12:00 | disposition home or self-care (01) ==
PROVIDERS: PCP Internal Medicine; Visit Provider Internal Medicine
DX: Z00.00 Encounter for general adult medical examination without abnormal findings (principal); E78.00 Pure hypercholesterolemia, unspecified; D64.9 Anemia, unspecified; D72.821 Monocytosis (symptomatic); D72.10 Eosinophilia, unspecified; R06.00 Dyspnea, unspecified; E55.9 Vitamin D deficiency, unspecified; R31.1 Benign essential microscopic hematuria; Z91.09 Other allergy status, other than to drugs and biological substances

== ENCOUNTER → 2024-06-30 12:12 | Outpatient (BNV) | payer OTHER, SELFPAY | PROVIDERS: PCP Internal Medicine; Visit Provider Radiology Diagnostic Radiology | DX: R06.00 Dyspnea, unspecified (principal) | CPT/HCPCS: 71046 ==

== ENCOUNTER → 2024-07-13 14:20 | Outpatient (BNV) | payer OTHER, SELFPAY | PROVIDERS: PCP Internal Medicine; Referring Provider Internal Medicine; Visit Provider Internal Medicine Medical Oncology | DX: D64.9 Anemia, unspecified (principal) | CPT/HCPCS: 99204 ==

== ENCOUNTER 2024-08-03 07:38 | Outpatient (REF) | payer OTHER, SELFPAY ==
--- OUTSIDE RECORDS SUMMARY | 2024-08-03 07:41 | XMS_ITS | Clinical Summary ---
Author Organization [facility] Facility Address [address] [address] Care Team Providers Care Chief Petroleum Engineer Name Role Phone Unavailable Primary Care Provider [...]
--- NOTE | 2024-08-03 07:51 | PFT_ITS ---
Indication: Dyspnea Spirometry [FEV1 to FVC 82%; FEV1 5.29 L; FVC 6.33 L. no significant response to bronchodilators noted] Lung Volumes [Total lung capacity 109% predicted residual volume 89% predicted] Diffusion Capacity [DLCO 103% predicted] Flow Volume Loops [Normal lung mechanics] Comparisons [none] Interpretation [No obstructive nor restrictive ventilatory defects identified. No significant response to bronchodilators noted. Normal lung volumes and normal diffusing capacity. The pulmonary function studies are consistent with normal lung mechanics and no clear explanation for the patient's symptoms. If asthma is in differential a methacholine challenge may be helpful to assess hyperreactive airways.] MTDD
[2024-08-03 08:30] VITALS: PULSE 84; O2SAT 100
== END 2024-08-03 07:39 | disposition home or self-care (01) ==
LOC: HO.RESP 07:38
PROVIDERS: PCP Internal Medicine; Visit Provider Internal Medicine
DX: R06.00 Dyspnea, unspecified (principal); Z77.090 Contact with and (suspected) exposure to asbestos
CPT/HCPCS: 94010; 94640; 94727; 94729

== ENCOUNTER → 2024-08-03 07:51 | Outpatient (BNV) | payer OTHER, SELFPAY | PROVIDERS: PCP Internal Medicine; Visit Provider Hospitalist | DX: R06.09 Other forms of dyspnea (principal); Z77.090 Contact with and (suspected) exposure to asbestos | CPT/HCPCS: 94060; 94727; 94729 ==

== ENCOUNTER 2024-08-19 08:45 | Outpatient (REF) | payer OTHER, SELFPAY ==
--- OUTSIDE RECORDS SUMMARY | 2024-08-19 09:08 | XMS_ITS | Clinical Summary ---
Author Organization [facility] Facility Address [address] [address] Care Team Providers Care Assembler [employer] Name Role Phone Unavailable Primary Care Provider [...] - 19+ 3-dose series) 2004 Influenza Vaccine (Season Ended) 2025 Pneumococcal Vaccine: Peds ( 0 to 5 Years) and At-Risk Patients (6 to 49 Years) Aged Out No longer eligible b ased on patient's age to complete this topic Insurance Medicaid
[2024-08-19 09:14] LABS: Hematocrit 39.5 % (42.0-52.0); Hemoglobin 13.9 g/dl (14.0-18.0); Mean Corpuscular HGB Conc 35.2 g/dl (31.0-36.0); Mean Corpuscular Hemoglobin 30.8 pg (27.0-33.0); Mean Corpuscular Volume 87.4 fL (80.0-98.0); Mean Platelet Volume 9.4 fL (9.4-12.4); Platelet Count 284 X10*3/uL (160-400); Red Blood Count 4.52 X10*6/uL (4.60-5.80); Red Cell Distribution Width 12.7 % (11.0-16.0); White Blood Count 5.5 X10*3/uL (4.8-10.8)
[2024-08-19 09:32] LABS: Appearance Urine Clear; Color Urine Yellow; Glucose Urine UA Negative (Negative); Leukocyte Esterase Urine Negative (Negative); Nitrite Urine Negative (Negative); Specific Gravity - Urine 1.025 (1.005-1.025); UMIC TRIGGER UA YES; Urine Blood Moderate (2+) (Negative); Urine Ketones Negative (Negative); Urine Protein Negative (Neg-Trace)
[2024-08-19 09:38] LABS: Bacteria Urine None Seen (None Seen); Hyaline Casts Urine 0-2 /LPF (0-2); Squamous Epithelial Cell Urine 0-2 /HPF (0-2); WBC Urine 0-5 /HPF (0-5)
[2024-08-19 09:44] LABS: Anion Gap 11 (12-20); Blood Urea Nitrogen 14 mg/dL (9-16); Calcium 9.3 mg/dL (8.4-10.2); Carbon Dioxide 27 mmol/L (22-29); Chloride 104 mmol/L (96-108); Estimated Glomerular Filt Rate > 60; Glucose Random 89 mg/dL (60-115); Sodium 137 mmol/L (135-145)
[2024-08-19 10:52] LABS: Creatinine Urine 185.63 mg/dL; Total Protein Urine Random < 7 mg/dL (<12)
== END 2024-08-19 08:46 | disposition home or self-care (01) ==
LOC: HO.LAB 08:45
PROVIDERS: PCP Internal Medicine; Visit Provider Internal Medicine Hypertension Specialist
DX: R31.9 Hematuria, unspecified (principal); N05.9 Unspecified nephritic syndrome with unspecified morphologic changes
CPT/HCPCS: 36415; 80048; 81001; 82570; 84156; 85027

== ENCOUNTER 2024-08-26 13:07 | Outpatient (AMB) | payer OTHER, SELFPAY ==
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
[2024-08-26 13:17] VITALS: BP 115/62; PULSE 74; O2SAT 98; BMI 25.0
--- OUTSIDE RECORDS SUMMARY | 2024-08-26 16:03 | XMS_ITS | Clinical Summary ---
Author Organization [facility] Facility Address [address] [address] Care Team Providers Care Shell Coremaker Name Role Phone Unavailable Primary Care Provider [...]
== END 2024-08-26 13:30 | disposition home or self-care (01) ==
LOC: HO.HKA 13:07
PROVIDERS: PCP Internal Medicine; Visit Provider Internal Medicine Hypertension Specialist
DX: R31.1 Benign essential microscopic hematuria (principal)
CPT/HCPCS: 99214

== ENCOUNTER → 2024-08-26 13:07 | Outpatient (BNVA) | payer OTHER, SELFPAY | PROVIDERS: PCP Internal Medicine; Visit Provider Internal Medicine Hypertension Specialist | DX: R31.1 Benign essential microscopic hematuria (principal) | CPT/HCPCS: 99212 ==

== ENCOUNTER 2024-12-28 07:24 | Outpatient (REF) | payer OTHER, SELFPAY ==
--- OUTSIDE RECORDS SUMMARY | 2024-12-28 07:27 | XMS_ITS | Clinical Summary ---
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 8 g 4 Active inhaler spacing device (AEROCHAMBER,BR EATHERITE) Spcr Inhale 1 each into the lungs every 4 (four) hours as needed. 1 each 4 Active Active Problems No known active problems Social History Tobacco Use Types Packs/Day Years Used Date Smoking Tobacco: Former Smokeless Tobacco: Never Tobacco Cessation:Counseling Given: Not Answered Education Answer Date Recorded Are you interested in more education? Not on reed e 09/06/2022 Are you concerned about learning? Not on file 09/06/2022 No 09/06/2022 No 09/06/2022 Digital Access Answer Date Recorded No 10/05/2022 No 10/05/2022 Reliable internet access at home? Not on file 10/05/2022 Device with a working camera? Not on file Sex and Gender Information Value Date Recorded Sex Assigned at Male 05/19/2017 9:38 AM EST Legal Sex Male 4:24 AM EST Gender Identity Male 05/19/2017 9:38 AM EST Sexual Orientation Straight 05/19/2017 9: 38 AM EST Last Filed Vital Signs Vital Sign Reading Time Taken Comments Blood Pressure 141/78 05/06/2024 12:26 PM EST Pulse 70 05/06/2024 12:26 PM EST Temperature 36.6 C (97.8 F) 05/06/2024 12:26 PM EST Respiratory Rate 20 05/06/2024 12:26 PM EST Oxygen Saturation 100% 05/06/2024 12:26 PM EST Inhaled Oxygen Concentration - - Weight 81.6 kg (180 lb) 05/06/2024 12:26 PM EST Height 180.3 cm (5' 11 ) 05/06/2024 12:26 PM EST Body Mass Index 25.1 05/06/2024 12:26 PM EST Plan of Treatment Health Maintenance Due Date Last Done Comments LIPID PANEL 1985 DEPRESSION SCREENING 1997 SMOKING Hx and SMOKELESS TOBACCO SCREENING 1998 HEPATITIS C SCREENING 2003 HIV ONE-TIME SCREENING (18-65 YEARS) 2003 SCREENING FOR DIABETES 2020 COVID-19 VACCINE ( season) 2024 02/19/2022, 06/14/2021, 09/07/2020, Additional history exists Adult Td,Tdap Booster 01/15/2033 01/15/2023 HEPATITIS A VACCINES Aged Out No long er eligible based on patient's age to complete this topic HIB VACCINES Aged Out No longer eligi ble based on patient's age to complete this topic MENINGOCOCCAL VACCINES (ACWY) Aged Out No longer eligible based on patient's age to complete this topic MENINGOCOCCAL VACCINES (B) Aged Out N o longer eligible based on patient's age to complete this topic PNEUMOCOCCAL VACCINES (0-49 years) Aged Out No longer eligible based on patient's age to complete this topic Medical Devices Not on file Insurance [facility] NON NSPG PCP CHARU ORELLANA CONNECTORCARE WELLSENSE NON NSPG PCP SILVER CLARITY CONNECTORCARE WELLSENSE NON NSPG PCP SILVER CLARITY CONNECTORCARE WELLSENSE NON NSPG PCP SILVER CLARITY [place] [address] [place] [address] NON NSPG PCP BERNIE CLARITY [place] [address] [place] [address] NON NSPG PCP BERNIE CLARITY CONNECTORCARE Care Teams Community Relations Police Lieutenant Relationship Specialty Start Date End Date Nicole Moya FNP [address] [place] [address] [address] [place], [place] [id number] PCP - General 01/27/23 Additional Source Comments The information contained in this document represents components of the legal health record. It is not the complete legal health record.[facility]
--- OUTSIDE RECORDS SUMMARY | 2024-12-28 07:27 | XMS_ITS | Clinical Summary ---
Author Organization [facility] Facility Address [address] [address] Care Team Providers Care Mechanical Operator Name Role Phone Unavailable Primary Care Provider [...] 19+ 3-dose series) 2004 Influenza Vaccine (#1) 2025 Pneumococcal Vaccine: Peds ( 0 to 5 Years) and At-Risk Patients (6 to 49 Years) Aged Out No longer eligible b ased on patient's age to complete this [place] [id number]
[2024-12-28 07:37] LABS: MANUAL DIFF FLAG NO
[2024-12-28 08:13] LABS: Hematocrit 38.9 % (42.0-52.0); Hemoglobin 13.2 g/dl (14.0-18.0); Imm Gran Abs Auto 0.05 X10*3/uL (0.00-0.03); Imm Gran Pct Auto 0.7 % (0.0-0.4); Lymphocytes Absolute Auto 2.1 X10*3/uL (1.2-4.9); Mean Corpuscular HGB Conc 33.9 g/dl (31.0-36.0); Mean Corpuscular Hemoglobin 30.1 pg (27.0-33.0); Mean Corpuscular Volume 88.8 fL (80.0-98.0); NRBC Abs Auto 0.000 X10*3/uL (0.0-0.012); NRBC Pct Auto 0.0 /100WBC (0.0-0.2); Platelet Count 292 X10*3/uL (160-400); Red Blood Count 4.38 X10*6/uL (4.60-5.80); White Blood Count 7.5 X10*3/uL (4.8-10.8)
[2024-12-28 08:51] LABS: Cholesterol 191 mg/dL (<200); HDL Cholesterol 45 mg/dL (>40); Triglycerides 220 mg/dL (<150)
[2024-12-28 08:52] LABS: Appearance Urine Clear; Glucose Urine UA Negative (Negative); PH 6.5 (5.0-9.0); Specific Gravity - Urine 1.010 (1.005-1.025); UMIC TRIGGER UACC YES
== END 2024-12-28 07:25 | disposition home or self-care (01) ==
LOC: HO.LAB 07:24
PROVIDERS: PCP Internal Medicine; Visit Provider Internal Medicine
DX: R31.1 Benign essential microscopic hematuria (principal); D64.9 Anemia, unspecified; E78.00 Pure hypercholesterolemia, unspecified
CPT/HCPCS: 36415; 80061; 81001; 85025; 88112

== ENCOUNTER 2024-12-29 09:27 | Outpatient (AMB) | payer OTHER, SELFPAY ==
[2024-12-29 09:45] VITALS: BP 132/90; PULSE 69; O2SAT 99; BMI 21.3
--- NOTE | 2024-12-29 09:45 | A.OFFPC_ITS ---
Vital Signs 12/29/24 09:45 Height 5 ft 11 in Weight 153 lb BMI 21.3 BP 132/90 H Blood Pressure Location Lt brachial Position Sitting Pulse 69 Pulse Source Pulse Oximeter Pulse Oximetry (%) 99 Intake Visit Reasons: 6 Month F/U Charter Driver Required: No Accompanied by: Self / Same As Patient Allergies Seasonal Allergies Allergy (Severe, Verified 01/04/25 14:59) Itchy Eyes Medication List - Last Reconciled 12/29/24 by Sourav Jean Baptiste MD cetirizine (Zyrtec) 10 mg PO DAILY cholecalciferol (vitamin D3) 50 mcg PO DAILY 90 days Tobacco use date assessed: 12/29/24 Dental Screening Dental Screen Date: 12/29/24 Did you have a dental visit in the last 12 months?: No Did you have a dental problem in the last 6 months where you did not have access to dental care?: No Was dental information given to patient?: No HPI 6 Month F/U HPI Details Patient comes in today for his follow up visit States that he feels okay He denies any headaches or dizziness Denies any chest pains, no SOB No nausea/vomiting, no abdominal pain No change in bowel habits noted He had his follow up labs done yesterday - to discuss his results [facility] Medical History Vitamin D deficiency Overweight (BMI 25.0-29.9) Pure hypercholesterolemia Vegetarian diet Surgical History No pertinent past surgical history Family History Mother Rheumatoid arthritis Father No problems noted. Brother No problems noted. 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 1. Little interest or pleasure in doing things: several days 2. Feeling down, depressed, or hopeless: several days 3. Trouble falling or staying asleep, or sleeping too much: several days 4. Feeling tired or having little energy: more than half the days 5. Poor appetite or overeating: not at all 6. Feeling bad about yourself - or that you are a failure or have let yourself or your family down: several days 7. Trouble concentrating on things, such as reading the newspaper or watching television: several days 8. Moving or speaking so slowly that other people could have noticed. Or the opposite - being so fidgety or restless that you have been moving around a lot more than usual: not at all 9. Thoughts that you would be better off or of hurting yourself in some way: not at all Total score: 7 Depression Screening Interpretation: Positive Depression Screening Follow-up: Follow-up Visit Requested Depression Screening Done: Yes 44606 - PHQ-9 Billing: Yes Source: Developed by Drs. Shyam Rivero, Richelle Mccurdy, Jatin Hoffman and colleagues, with an educational vinnie from [employer]. Thrive Questionnaire Date Thrive assessed: 06/30/24 I am a: Patient What is your living situation today?: I choose not to answer this question Within the past 12 months, did the food you bought not last and you didn't have the money to get more?: I choose not to answer this question Within the past 12 months, did you worry whether your food would run out before you got money to buy more?: I choose not to answer this question Do you have trouble paying for medicines?: I choose not to answer this question Do you have trouble getting transportation to medical appointments?: I choose not to answer this question Do you have trouble paying your heating and electricity bill?: I choose not to answer this question Do you have trouble taking care of your child, family member or friend?: I choose not to answer this question Do you have trouble with day-to-day activities such as bathing, preparing meals, shopping, managing finances, etc.?: I choose not to answer this question Are you currently unemployed and looking for a job?: I choose not to answer this question Are you interested in more education?: I choose not to answer this question Please select the resources that you would like help with: None Currently or been in a relationship where the following occur: I choose not to answer THRIVE Score: 0 MILEY-7 AMB Questionnaire MILEY-7 Date MILEY - 7 assessed: 06/30/24 Source: Developed by Drs. Shyam Rivero, Richelle Mccurdy, Jatin Hoffman and colleagues, with an educational vinnie from [employer]. Review of Systems Const Denies chills, Denies fatigue, Denies fever(s) and Denies headache(s) ENT Denies dysphagia, Denies dizziness, Denies otalgia, Denies headache(s), Denies neck pain, Denies odynophagia and Denies sore throat Card Denies chest pain, Denies irregular heart rhythm, Denies palpitations and Denies dyspnea Resp Denies chest congestion, Denies cough and Denies dyspnea GI Denies abdominal pain, Denies constipation, Denies dysphagia, Denies heartburn, Denies diarrhea, Denies nausea, Denies odynophagia and Denies vomiting Denies difficulty urinating, Denies dysuria, Denies nocturia and Denies urinary frequency Musc Denies back pain, Denies arthralgias and Denies neck pain Skin/Breast Denies rash Neuro Denies dizziness, Denies headache(s) and Denies paresthesias Endo Denies fatigue and Denies palpitations Aller/Immun Denies seasonal rhinorrhea Physical exam (Primary Care) Vital Signs: Last Vital Signs Pulse 69 12/29/24 09:45 BP 132/90 H 12/29/24 09:45 Pulse Ox 99 12/29/24 09:45 BMI result Body Mass Index 21.3 Tobacco/Smoking Status: Tobacco use Status Tobacco use date assessed 12/29/24 12/29/24 09:49 Patient Tobacco Use Status Former Tobacco user 12/29/24 09:49 Tobacco use type Cigarette 12/29/24 09:49 e-Cigarette/Vaping Use Former Use 12/29/24 09:49 PHQ-9: PHQ-9 Score PHQ-9: Total score 7 12/29/24 12:58 Depression Screening Interpretation: Positive Depression Screening Follow-up: Follow-up Visit Requested Thrive Assessment: Date of Thrive Assessment Date Thrive assessed 06/30/24 12/29/24 09:49 Currently or been in a relationship where the following occur: I choose not to answer Const General: no acute distress and alert HENMT Ears: TM's normal bilaterally and EAC's normal Throat: Yes posterior oropharynx normal and Yes tonsils normal (no TP congestion) Neck Neck: Yes supple and No lymphadenopathy Thyroid: Thyroid normal Resp Auscultation: clear to auscultation bilaterally, no rales and no wheezes Cardio Rate: regular rate Rhythm: regular rhythm Heart sounds: no murmurs GI Palpation (GI): Soft to palpation and nontender Auscultation: normal bowel sounds General: Yes no CVA tenderness Back/Spine/Pelvis Back: no CVA tenderness Thoracic/Lumbar Spine: No lumbar spinal tenderness Skin Rashes: no rashes Extrem General: Yes no clubbing, cyanosis or edema Results Reviewed Results Reviewed: Laboratory Tests 10/28/24 12/28/24 09:08 07:35 WBC 7.5 Hgb 13.2 L Hct 38.9 L Plt Count 292 Sodium 137 Potassium 4.0 Creatinine 0.92 Estimated GFR > 60 Random Glucose 127 H Calcium 9.3 AST 25 ALT 20 Triglycerides 220 H Cholesterol 191 LDL Cholesterol, Calc 102 H HDL Cholesterol 45 Coding Level of Care Code Est Pt Level 4 (90147) Diagnoses Pure hypercholesterolemia E78.00 Anemia, unspecified type D64.9 Anemia type: unspecified type Monocytosis D72.821 Eosinophilia, unspecified type D72.10 Eosinophilia type: unspecified eosinophilia Vitamin D deficiency E55.9 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 type: benign essential microscopic Environmental allergies Z91.09 Additional Codes PHQ-9 - 37248 - PHQ-9 Billing: Yes ([id number]) Assessment & Plan Assessment & Plan (1) Pure hypercholesterolemia: Code(s): E78.00 - Pure hypercholesterolemia, unspecified Category: Medical Plan: Results of his labs done yesterday reviewed and discussed with patient Reinforced low-cholesterol diet Will recheck his labs and fasting lipids in 6 months for follow-up (2) Anemia: Code(s): D64.9 - Anemia, unspecified Category: Medical Qualifiers: Anemia type: unspecified type Qualified Code(s): D64.9 - Anemia, unspecified Plan: Patient has been presenting with mild anemia on his labs done over the past couple of years His iron levels were normal when checked last year Peripheral smear also came back normal He was referred to hematology for further evaluation Work ups done have so far been negative/normal Plan is to continue monitoring for now and do a bone marrow biopsy only if his Hgb falls under 10.0 Will continue to monitor his CBC regularly (3) Monocytosis: Code(s): D72.821 - Monocytosis (symptomatic) Category: Medical Plan: Patient has also been presenting with mild monocytosis on his CBC done over the past couple of years A peripheral smear done last year (2023) came back normal Follow up with hematology as scheduled (4) Eosinophilia: Code(s): D72.10 - Eosinophilia, unspecified Category: Medical Qualifiers: Eosinophilia type: unspecified eosinophilia Qualified Code(s): D72.10 - Eosinophilia, unspecified Plan: His CBC continues to present with persistent eosinophilia although his numbers have decreased from previous He reports that he has allergies and takes either OTC Loratadine 10 mg or Cetirizine 10 mg QD PRN Follow up with allergy and immunology in [place] (Dr. Keys) as scheduled He has been getting allergy injections regularly (5) Vitamin D deficiency: Code(s): E55.9 - Vitamin D deficiency, unspecified Category: Medical Plan: Continue Vitamin D3 2000 units QD (6) Hematuria: Code(s): R31.9 - Hematuria, unspecified Category: Medical Qualifiers: Hematuria type: benign essential microscopic Qualified Code(s): R31.1 - Benign essential microscopic hematuria Plan: He has been seen and worked up by Nephrology for this and his workups have all so far been negative Will continue to monitor his urine and renal function regularly Follow-up with nephrology as scheduled (7) Environmental allergies: Code(s): Z91.09 - Other allergy status, other than to drugs and biological substances Category: Medical Plan: Continue OTC Loratadine 10 mg or Cetirizine 10 mg QD PRN He was referred to and is now seeing allergy and immunology in [place] (Dr. Keys) and getting allergy injections regularly Plan To return in 6 months for his annual physical examination Orders: Orders UA CC w/rflx Micro + Cult 6 Months R30.0 - Dysuria, Z00.00 - Encounter for general adult medical examination without abnormal findings Complete Blood Count Auto Diff 6 Months D64.9 - Anemia, unspecified, Z00.00 - Encounter for general adult medical examination without abnormal findings Comprehensive [place]. Panel Fast 6 Months E78.00 - Pure hypercholesterolemia, unspecified, Z00.00 - Encounter for general adult medical examination without abnormal findings Lipid Panel 6 Months E78.00 - Pure hypercholesterolemia, unspecified, Z00.00 - Encounter for general adult medical examination without abnormal findings TSH reflex Free T4 6 Months E78.00 - Pure hypercholesterolemia, unspecified, Z00.00 - Encounter for general adult medical examination without abnormal findings Vitamin D 25-OH Total 6 Months E55.9 - Vitamin D deficiency, unspecified, Z00.00 - Encounter for general adult medical examination without abnormal findings Vitamin B12 and Folate 6 Months E53.8 - Deficiency of other specified B group vitamins, Z00.00 - Encounter for general adult medical examination without abnormal findings
--- OUTSIDE RECORDS SUMMARY | 2024-12-29 10:11 | XMS_ITS | Clinical Summary ---
Author Organization [facility] Facility Address [address] [address] Care Team Providers Care Pastry Cook Apprentice Name Role Phone Unavailable Primary Care Provider [...]
--- OUTSIDE RECORDS SUMMARY | 2024-12-29 10:11 | XMS_ITS | Clinical Summary ---
Author Organization [facility] Address [address] [place] [address] Phone Care Team Providers Care Heritage Consultant Name Role Phone Nicole Moya OVEN TECHNICIAN Primary Care Prov ider Allergies No known [...] topic Medical Devices Not on file Insurance [facility] NON NSPG PCP CHARU ORELLANA CONNECTORCARE WELLSENSE NON NSPG PCP SILVER CLARITY CONNECTORCARE WELLSENSE NON NSPG PCP SILVER CLARITY CONNECTORCARE WELLSENSE NON NSPG PCP SILVER CLARITY CONNE[place] [address] [place] [address] NON NSPG PCP SENTINEL CLARITY CONNE[employer] [address] [place] [address] NON NSPG PCP SENTINEL CLARITY CONNECTORCARE Care Teams Heritage Consultant Relationship Specialty Start Date End Date Nicole Moya FNP [address] [place] [address] [address] [place], [place] [id number] PCP - General 01/27/23 Additional Source Comments The information contained in this document represents components of the legal health record. It is not the complete legal health record.[facility]
== END 2024-12-29 10:25 | disposition home or self-care (01) ==
LOC: HO.HMCH 09:28
PROVIDERS: PCP Internal Medicine; Visit Provider Internal Medicine
DX: E78.00 Pure hypercholesterolemia, unspecified (principal); D64.9 Anemia, unspecified; D72.821 Monocytosis (symptomatic); D72.10 Eosinophilia, unspecified; E55.9 Vitamin D deficiency, unspecified; R31.1 Benign essential microscopic hematuria; Z91.09 Other allergy status, other than to drugs and biological substances

== ENCOUNTER → 2024-12-29 09:27 | Outpatient (BNVA) | payer OTHER, SELFPAY | PROVIDERS: PCP Internal Medicine; Visit Provider Internal Medicine | DX: D72.821 Monocytosis (symptomatic) (principal); E78.00 Pure hypercholesterolemia, unspecified; D64.9 Anemia, unspecified; E55.9 Vitamin D deficiency, unspecified; R31.1 Benign essential microscopic hematuria; R30.0 Dysuria; E53.8 Deficiency of other specified B group vitamins; Z91.09 Other allergy status, other than to drugs and biological substances | CPT/HCPCS: 96127; 99212 ==

== ENCOUNTER 2025-01-04 14:51 | Outpatient (AMB) | payer OTHER, SELFPAY ==
--- NOTE | 2025-01-04 14:55 | MHC.OFFVIS ---
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 The patient is a 39-year-old gentleman fairly healthy who is concerned about significant inorganic dust exposures. 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 Sometimes he does use a mask. He has been exposed to significant amount of asbestos as well. He has had some chest discomfort. Wpnd-kd-uobpohzn severity also has some shortness of breath. The patient also has significant allergies and is currently getting allergy shots. As far as his workup he did have pulmonary function studies which was personally reviewed by me demonstrating no evidence of any obstructive nor restrictive ventilatory defects. In addition to that the patient did undergo a chest x-ray from June 2024 which I personally reviewed without any acute disease. In view of his significant environmental exposures and persistent chest pain and shortness of breath a CT scan of the chest will be warranted to further address his ongoing symptoms. [facility] Medical History Vitamin D deficiency Overweight (BMI 25.0-29.9) Pure hypercholesterolemia Vegetarian diet Surgical History No pertinent past surgical history Family History Mother Rheumatoid arthritis Father No problems noted. Brother No problems noted. 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) Cognitive needs: No Hearing needs: No Vision needs: Yes (glasses/ contacts) Review of Systems Const Denies chills, Denies fatigue, Denies fever(s), Denies headache(s), Denies malaise and Denies weakness Eyes Denies blurry vision, Denies change in vision, Denies irritation and Denies itchy eyes ENT Denies dysphagia, Denies dizziness, Denies otalgia, Denies headache(s), Reports nasal congestion, Reports nasal discharge, Denies neck pain, Denies odynophagia and Denies sore throat Card Reports chest pain, Denies rapid heart rate, Denies irregular heart rhythm, Denies palpitations and Reports dyspnea on exertion (mild, at times) Resp Denies chest congestion, Reports cough (occasional, non-productive), Reports dyspnea on exertion (mild, at times) and Denies wheezing GI Denies abdominal pain, Denies bloating, Denies constipation, Denies dysphagia, Denies heartburn, Denies diarrhea, Denies nausea, Denies odynophagia and Denies vomiting Denies hematuria, Denies difficulty urinating, Denies dysuria, Denies urinary frequency and Denies urinary urgency Musc Denies back pain, Denies arthralgias, Denies joint swelling, Denies muscle weakness and Denies neck pain Skin/Breast Denies change in pigmentation, Denies lesions, Denies rash and Denies unusual bruising Neuro Denies dizziness, Denies headache(s), Denies paresthesias and Denies weakness Endo Denies fatigue and Denies palpitations Aller/Immun Denies itchy eyes and Denies wheezing Physical Exam Vital Signs: Last Vital Signs Pulse 80 01/04/25 14:56 BP 144/72 H 01/04/25 14:56 Pulse Ox 98 01/04/25 14:56 Oxygen Delivery Method Room Air 01/04/25 14:56 BMI result Body Mass Index 24.1 Const General: comfortable Nutritional Appearance: well nourished Orientation/consciousness: patient oriented x3 HEENT Head: No normal to inspection Mouth: moist mucous membranes Neck Neck: Yes supple and Yes no JVD Chest Chest palpation & inspection: normal inspection of the chest Resp Effort & Inspection: normal respiratory effort Auscultation: clear to auscultation bilaterally and no rales Cardio Jugular venous distension: no JVD Palpation: no palpable S3 and no palpable S4 Heart sounds: no rubs GI Palpation (GI): Soft to palpation and nontender Percussion: No Fluid wave present General: Yes no CVA tenderness Back/Spine/Pelvis Back: no CVA tenderness Skin General skin exam: no rashes or lesions noted Neuro General: patient oriented x3 Extrem General: Yes no pedal edema and No clubbing Assessment & Plan Assessment & Plan (1) Environmental allergies: Code(s): Z91.09 - Other allergy status, other than to drugs and biological substances Category: Medical (2) Chest pain: Code(s): R07.9 - Chest pain, unspecified Category: Medical Qualifiers: Chest pain type: unspecified Qualified Code(s): R07.9 - Chest pain, unspecified (3) Eosinophilia: Code(s): D72.10 - Eosinophilia, unspecified Category: Medical Qualifiers: Eosinophilia type: unspecified eosinophilia Qualified Code(s): D72.10 - Eosinophilia, unspecified (4) Shortness of breath: Code(s): R06.02 - Shortness of breath Category: Medical Plan PFTs/CXR non-diagnostix, constinues symptomatic. Will request CT chest to assess for ILD/pneumoconiosis continue nasal sprays antihistamine therapy neti bottle with distilled water and packets PM Needs to wear respirator/N95 while working with fumes and dust F/U 3-4 months Coding Level of Care Code New Pt Level 4 (31305) Diagnoses Environmental allergies Z91.09 Chest pain, unspecified type R07.9 Chest pain type: unspecified Eosinophilia, unspecified type D72.10 Eosinophilia type: unspecified eosinophilia Shortness of breath R06.02 Time Spent (min) 40
[2025-01-04 14:56] VITALS: BP 144/72; PULSE 80; O2SAT 98; BMI 24.1
--- OUTSIDE RECORDS SUMMARY | 2025-01-04 15:47 | XMS_ITS | Clinical Summary ---
Author Organization [facility] Address [address] [place] [id number] Phone Care Team Providers Care Salesperson Burial Plots Name Role Phone Nicole Moya EVS TECH Primary Care Prov ider Allergies No known [...] topic Medical Devices Not on file Insurance [facility] NON NSPG PCP CHARU [place] CONNECTORCARE WELLSENSE NON NSPG PCP SILVER CLARITY CONNECTORCARE WELLSENSE NON NSPG PCP SILVER CLARITY CONNECTORCARE [employer] NON NSPG PCP SILVER CLARITY [place] [address] [address] [place] [address] NON NSPG PCP [place] CLARITY [place] [address] [place] [address] NON NSPG PCP [employer] CONNECTORCARE Care Teams Salesperson Burial Plots Relationship Specialty Start Date End Date Nicole Moya FNP [address] [place] [address] [address] [place], [place] [id number] PCP - General 01/27/23 Additional Source Comments The information contained in this document represents components of the legal health record. It is not the complete legal health record.[facility]
--- OUTSIDE RECORDS SUMMARY | 2025-01-04 15:47 | XMS_ITS | Clinical Summary ---
Author Organization [facility] Facility Address [address] [address] Care Team Providers Care Truss Designer Name Role Phone Unavailable Primary Care Provider [...]
== END 2025-01-04 15:32 | disposition home or self-care (01) ==
LOC: HO.HPS 14:52
PROVIDERS: PCP Internal Medicine; Visit Provider Hospitalist
DX: Z91.09 Other allergy status, other than to drugs and biological substances (principal); R07.9 Chest pain, unspecified; D72.10 Eosinophilia, unspecified; R06.02 Shortness of breath
CPT/HCPCS: 99203

== ENCOUNTER → 2025-01-04 14:51 | Outpatient (BNVA) | payer OTHER, SELFPAY | PROVIDERS: PCP Internal Medicine; Visit Provider Hospitalist | DX: R06.02 Shortness of breath (principal); Z91.09 Other allergy status, other than to drugs and biological substances; R07.9 Chest pain, unspecified; D72.10 Eosinophilia, unspecified | CPT/HCPCS: 99202 ==

== ENCOUNTER 2025-02-11 07:34 | Outpatient (REF) | payer OTHER, SELFPAY ==
--- NOTE | ~2025-02-11 | CT_ITS ---
EXAMINATION: CT HIGH-RESOLUTION CHEST WITHOUT CONTRAST CLINICAL INFORMATION: Exposure to asbestos, silica and wood COMPARISON: None available. TECHNIQUE: Multidetector volumetric CT high-resolution imaging of the chest was done. Axial MIP volume rendering provided. Sagittal and coronal reformatted images were obtained. This CT examination was performed using dose optimization techniques as appropriate, variously including the following: *Automated exposure control *Adjustment of mA and/or kV according to patient size (this includes techniques or standardized protocols for targeted exams where dose is matched to indication/reason for exam; i.e. extremities or head) *Use of iterative reconstruction technique. DLP: 172 mGy centimeter. 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 Cardiomediastinal silhouette size is normal. Both upper extremities at the size of the head. No metallic or radiopaque foreign bodies. LUNGS: Hyperinflated lungs. Increased AP diameter of the thorax. Flattening diaphragm. No discrete centrilobular or paraseptal emphysematous changes.. No pulmonary nodules. No bronchiectasis. No honeycombing. No acute airspace disease. Respiratory airways is patent. MEDIASTINUM: No mediastinal lymphadenopathy. No pneumomediastinum. No pericardial effusion. No aneurysm, thoracic aorta. No gross calcified plaques in the vascular structures. Heart appears small. CORONARY ARTERY CALCIFICATION: None visualized on this study. PLEURA: No calcified pleural plaques. No pneumothorax, no pleural effusion. AXILLA: No lymphadenopathy. UPPER ABDOMEN: Punctate calcification in the superior margin of the body of the pancreas. No nodular lesions in the adrenal glands. OSSEOUS STRUCTURES: Mild multilevel thoracic spondylosis. No acute fracture or listhesis. No lytic or blastic lesions. Sternum is intact. No acute or old rib fractures. Scapula are intact. Clavicles are intact. Vacuum phenomenon at the right first sternocostal joint. CT/CT chest wo con - High Res IMPRESSION: Hyperinflated lungs without acute or chronic airspace disease. Fleischner guidelines were followed. Electronically signed by: Abdias Kwan MD 02/11/2025 08:32 AM EDT
--- OUTSIDE RECORDS SUMMARY | 2025-02-11 07:36 | XMS_ITS | Clinical Summary ---
Author Organization [facility] Facility Address [address] [address] Care Team Providers Care Passport Application Examiner Name Role Phone Unavailable Primary Care Provider [...]
--- OUTSIDE RECORDS SUMMARY | 2025-02-11 07:36 | XMS_ITS | Clinical Summary ---
Author Organization [facility] Address [address] [place] [id number] Phone Care Team Providers Care Appliances Sample Maker Name Role Phone Nicole Moya EMPLOYMENT CASE MANAGER Primary Care Prov ider Allergies No known [...] (18-65 YEARS) 2003 SCREENING FOR DIABETES 2020 INFLUENZA VACCINE (#1) 2024 02/19/2022, 2020 COVID-19 VACCINE ( season) 2025 02/19/2022, 06/14/2021, 09/07/2020, Additional history exists Adult [...] topic Medical Devices Not on file Insurance [facility] NON NSPG PCP SILVER [place] CONNECTORCARE WELLSENSE NON NSPG PCP SILVER CLARITY CONNECTORCARE [employer] NON NSPG PCP SILVER CLARITY CONNECTORCARE WELLSENSE NON NSPG PCP SILVER CLARITY CONNECTORCARE [employer] NON NSPG PCP SILVER CLARITY CONNECTORCARE [employer] NON NSPG PCP [place] CLARITY CONNECTORCARE Care Teams Appliances Sample Maker Relationship Specialty Start Date End Date Nicole Moya FNP [address] [place] [address] [address] [place] [address] PCP - General 01/27/23 Additional Source Comments The information contained in this document represents components of the legal health record. It is not the complete legal health record.[facility]
== END 2025-02-11 07:35 | disposition home or self-care (01) ==
LOC: HO.CT 07:34
PROVIDERS: PCP Internal Medicine; Visit Provider Internal Medicine Medical Oncology
DX: Z77.090 Contact with and (suspected) exposure to asbestos (principal)
CPT/HCPCS: 71250

== ENCOUNTER → 2025-02-11 07:35 | Outpatient (BNV) | payer OTHER, SELFPAY | PROVIDERS: PCP Internal Medicine; Visit Provider Radiology Diagnostic Radiology | DX: J61 Pneumoconiosis due to asbestos and other mineral fibers (principal) | CPT/HCPCS: 71250 ==

== ENCOUNTER 2025-04-06 08:37 | Outpatient (AMB) | payer OTHER, SELFPAY ==
--- NOTE | 2025-04-06 08:40 | A.OFFVIS_ITS ---
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 Sometimes he does use a mask. He has been exposed to significant amount of asbestos as well. He has had some chest discomfort. Csxb-lf-dfdzpkoj severity also has some shortness of breath. The patient also has significant allergies and is currently getting allergy shots. As far as his workup he did have pulmonary function studies which was personally reviewed by me demonstrating no evidence of any obstructive nor restrictive ventilatory defects. In addition to that the patient did undergo a chest x-ray from June 2024 which I personally reviewed without any acute disease. In view of his significant environmental exposures and persistent chest pain and shortness of breath a CT scan of the chest will be warranted to further address his ongoing symptoms. 04/06/2025 the patient is here for pulmonary follow-up visit. Overall the patient has been doing okay. Denies any worsening shortness of breath. He has tried to wear a mask when working as a painter bottom. He is also looking for different profession. We did review his CT scan of the chest closely. I personally reviewed with him. His lung parenchyma looks good I do not see any evidence of any pneumoconiosis which is reassuring. No pulmonary nodules or pleural-based disease. The patient does have a small punctate calcification in the pancreas. He will follow up with his primary care doctor regarding that. H e may need to see a GI doctor in cases is a stone. The patient does have descriptions of hyperinflated lungs but I explained to him that this is not anything of him worry about. We did look at his PFTs that he does not have significant hyperinflation although he does have a slight trend of it. We did talk about different exercises that he can do to try to help him with that. But for now he is doing good he can follow up as needed. He will follow up with his primary care doctor regarding the pancreatic findings. [facility] Medical History Vitamin D deficiency Overweight (BMI 25.0-29.9) Pure hypercholesterolemia Vegetarian diet Surgical History No pertinent past surgical history Family History Mother Rheumatoid arthritis Father No problems noted. Brother No problems noted. 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/sohail) Cognitive needs: No Hearing needs: No Vision needs: Yes (glasses/ contacts) Review of Systems Const Denies chills, Denies fatigue, Denies fever(s), Denies headache(s), Denies malaise and Denies weakness Eyes Denies blurry vision, Denies change in vision, Denies irritation and Denies itchy eyes ENT Denies dysphagia, Denies dizziness, Denies otalgia, Denies headache(s), Reports nasal congestion, Reports nasal discharge, Denies neck pain, Denies odynophagia and Denies sore throat Card Reports chest pain, Denies rapid heart rate, Denies irregular heart rhythm, Denies palpitations and Reports dyspnea on exertion (mild, at times) Resp Denies chest congestion, Reports cough (occasional, non-productive), Reports dyspnea on exertion (mild, at times) and Denies wheezing GI Denies abdominal pain, Denies bloating, Denies constipation, Denies dysphagia, Denies heartburn, Denies diarrhea, Denies nausea, Denies odynophagia and Denies vomiting Denies hematuria, Denies difficulty urinating, Denies dysuria, Denies urinary frequency and Denies urinary urgency Musc Denies back pain, Denies arthralgias, Denies joint swelling, Denies muscle weakness and Denies neck pain Skin/Breast Denies change in pigmentation, Denies lesions, Denies rash and Denies unusual bruising Neuro Denies dizziness, Denies headache(s), Denies paresthesias and Denies weakness Endo Denies fatigue and Denies palpitations Aller/Immun Denies itchy eyes and Denies wheezing Physical Exam Vital Signs: Last Vital Signs Pulse 93 04/06/25 08:47 BP 134/70 04/06/25 08:47 Pulse Ox 100 04/06/25 08:47 Oxygen Delivery Method Room Air 04/06/25 08:47 BMI result Body Mass Index 25.5 Const General: comfortable Nutritional Appearance: well nourished Orientation/consciousness: patient oriented x3 HEENT Head: No normal to inspection Mouth: moist mucous membranes Neck Neck: Yes supple and Yes no JVD Chest Chest palpation & inspection: normal inspection of the chest Resp Effort & Inspection: normal respiratory effort Auscultation: clear to auscultation bilaterally and no rales Cardio Jugular venous distension: no JVD Palpation: no palpable S3 and no palpable S4 Heart sounds: no rubs GI Palpation (GI): Soft to palpation and nontender Percussion: No Fluid wave present General: Yes no CVA tenderness Back/Spine/Pelvis Back: no CVA tenderness Skin General skin exam: no rashes or lesions noted Neuro General: patient oriented x3 Extrem General: Yes no pedal edema and No clubbing Assessment & Plan Assessment & Plan (1) Environmental allergies: Code(s): Z91.09 - Other allergy status, other than to drugs and biological substances Category: Medical (2) Chest pain: Code(s): R07.9 - Chest pain, unspecified Category: Medical Qualifiers: Chest pain type: unspecified Qualified Code(s): R07.9 - Chest pain, unspecified (3) Eosinophilia: Code(s): D72.10 - Eosinophilia, unspecified Category: Medical Qualifiers: Eosinophilia type: unspecified eosinophilia Qualified Code(s): D72.10 - Eosinophilia, unspecified (4) Shortness of breath: Code(s): R06.02 - Shortness of breath Category: Medical Plan CT chest, no ILD/pneumoconiosis continue nasal sprays antihistamine therapy neti bottle with distilled water and packets PM Needs to wear respirator/N95 while working with fumes and dust F/U as needed Coding Level of Care Code Est Pt Level 4 (21761) Diagnoses Environmental allergies Z91.09 Chest pain, unspecified type R07.9 Chest pain type: unspecified Eosinophilia, unspecified type D72.10 Eosinophilia type: unspecified eosinophilia Shortness of breath R06.02 Time Spent (min) 17
[2025-04-06 08:47] VITALS: BP 134/70; PULSE 93; O2SAT 100; BMI 25.5
--- OUTSIDE RECORDS SUMMARY | 2025-04-06 09:02 | XMS_ITS | Clinical Summary ---
Author Organization [facility] Facility Address [address] [address] Care Team Providers Care Property And Casualty Insurance Agent Name Role Phone Unavailable Primary Care Provider [...]
--- OUTSIDE RECORDS SUMMARY | 2025-04-06 09:02 | XMS_ITS | Clinical Summary ---
Author Organization [facility] Address [address] [place], [place] [id number] Phone Care Team Providers Care Signal And Communications Maintainer Name Role Phone Sourav Jean Baptiste MD Primary Care Provider [phone] Allergies No known active allergies Medications albuterol 90 mcg/actuation inhaler Inhale 1-2 puffs into the lungs every 4 (four) hours as needed for wheezing or shortness of breath/dyspnea . 8 g 4 Active inhaler spacing device (AEROCHAMBER,BR EATHERITE) Spcr Inhale 1 each into the lungs every 4 (four) hours as needed. 1 each 4 Active predniSONE (DELTASONE) 10 MG tablet Take 6 tablets (60 mg total) by mouth daily with breakfast for 2 days, THEN 5 tablets (50 mg total) daily with breakfast for 3 days, THEN 4 tablets (40 mg total) daily with breakfast for 3 days, THEN 3 tablets (30 mg total) daily with breakfast for 3 days, THEN 2 tablets (20 mg total) daily with breakfast for 3 days, THEN 1 tablet (10 mg total) daily with breakfast for 3 days. 57 tablet 5 03/11/20 25 Active Problems No known active problems Encounters Date Type Department Care Team Description 02/21/2025 9:12 PM EDT - 02/21/2025 10:29 PM EDT Emergency [facility] [address] [place] [address] Farideh Dempsey MD Discharge Disposition: Home or Self Care from Last 3 Months Social History Tobacco Use Types Packs/Day Years Used Date Smoking Tobacco: Former Smokeless Tobacco: Never Tobacco Cessation:Counseling Given: Not Answered Education Answer Date Recorded Are you interested in more education? Not on reed e 09/06/2022 Are you concerned about learning? Not on file 09/06/2022 No 09/06/2022 No 09/06/2022 Food Answer Date Recorded Within the past 6 months we worried whether our food would run out before we got money to buy more. Never True 02/21/2025 Within the past 6 months the food we bought just didn't last and we didn't have enough money to get more. Never True Residential Stability Answer Date Recor ded What is your housing situation today? I have sharon sing 02/21/2025 How many times have you move d in the past 12 months? Zero (I did not move) 02/21/2025 Paying for Meds Answer Date Recorded Do you have trouble paying for medicines? No 02/21/2025 Paying Utility Bills Answer Date Record ed Do you have trouble paying your heating or elect ricity bill? No 02/21/2025 Transportation Answer Date Recorded Has the lack of transportati on kept you from medical appointments or from getting medications? No 02/21/2025 Digital Access Answer Date Recorded No 02/21/2025 Yes 02/21/2025 Do you have reliable internet access at home? Ye s 02/21/2025 Do you have a device (e.g., phone, tablet, computer) with a working camera? Yes 02/21/2025 Intimate Partner Violence Answer Date R ecorded Are you denied basic needs s uch as food, clothing, or medical care? No 02/21/2025 In the past 12 months have y ou been in a relationship with a person who hurts, threatens, or tries to control you? No 02/21/2025 Are you denied basic needs s uch as food, clothing, or medical care? No 02/21/2025 In the past 12 months have y ou been in a relationship with a person who hurts, threatens, or tries to control you? No 02/21/2025 Sex and Gender Information Value Date Recorded Sex Assigned at Male 05/19/2017 9:38 AM EST Legal Sex Male 4:24 AM EST Gender Identity Male 05/19/2017 9:38 AM EST Sexual Orientation Straight 05/19/2017 9: 38 AM EST Last Filed Vital Signs Vital Sign Reading Time Taken Comments Blood Pressure 144/76 02/21/2025 10:28 PM EDT Pulse 86 02/21/2025 10:28 PM EDT Temperature 36.6 C (97.8 F) 02/21/2025 10:28 PM EDT Respiratory Rate 16 02/21/2025 10:28 PM EDT Oxygen Saturation 97% 02/21/2025 10:28 PM EDT Inhaled Oxygen Concentration - - Weight 81.6 [...] topic Medical Devices Not on file Insurance [facility] NON NSPG PCP [place] [place] [employer] NON NSPG PCP SILVER CLARITY CONNE[employer]CARE [employer] NON NSPG PCP SILVER CLARITY CONNECTORCARE WELLSENSE NON NSPG PCP SILVER CLARITY CONNE[place] [address] [place] [address] NON NSPG PCP [place] [employer] [address] [place] [address] NON NSPG PCP [place] [employer] Care Teams Signal And Communications Maintainer Relationship Specialty Start Date End Date Sourav Jean Baptiste MD [address] [place] [address] [place] [address] PCP - General Internal Medicine 02/21/25 Additional Source Comments The information contained in this document represents components of the legal health record. It is not the complete legal health record.[facility]
== END 2025-04-06 09:15 | disposition home or self-care (01) ==
LOC: HO.HPS 08:38
PROVIDERS: PCP Internal Medicine; Visit Provider Hospitalist
DX: Z91.09 Other allergy status, other than to drugs and biological substances (principal); R07.9 Chest pain, unspecified; D72.10 Eosinophilia, unspecified; R06.02 Shortness of breath
CPT/HCPCS: 99214

== ENCOUNTER → 2025-04-06 08:37 | Outpatient (BNVA) | payer OTHER, SELFPAY | PROVIDERS: PCP Internal Medicine; Visit Provider Hospitalist | DX: R06.02 Shortness of breath (principal); D72.10 Eosinophilia, unspecified; R07.9 Chest pain, unspecified; Z91.09 Other allergy status, other than to drugs and biological substances | CPT/HCPCS: 99212 ==